=== PATIENT | female | born 1975 | race Caucasian/White ===

== ENCOUNTER 2017-11-28 17:49 | Inpatient (IN) | payer OTHER ==
[~2017-11-28] VITALS: Ht 162.6 cm; Wt 97.1 kg
--- NOTE | 2017-11-28 18:11 | ED PSYCHIATRIC COMPLAINT ---
See Addendum History of Present Illness General Chief Complaint: ETOH/Drug Related Complaint Stated Complaint: ETOH DETOX, PANIC ATTACK Source: patient, old records, EMS Exam Limitations: no limitations Vital Signs & Intake/Output Vital Signs & Intake/Output Vital Signs Date Time Temp Pulse Resp B/P B/P Pulse O2 O2 Flow FiO2 Mean Ox Delivery Rate 11/29 0050 98.7 125 20 154/96 96 Room Air 11/29 0046 98.7 123 18 154/96 11/28 2329 Room Air 11/28 2218 97.5 112 16 135/73 11/28 2218 97.5 112 16 135/73 96 Room Air 11/28 2107 99.3 11/28 2017 99.3 128 18 141/75 11/28 2017 99.3 128 18 141/75 95 Room Air 11/28 1920 Room Air 11/28 1900 99.0 120 18 150/67 11/28 1900 99.0 120 18 150/67 95 Room Air 11/28 1751 138 20 148/101 97 Room Air Room Air ED Intake and Output 11/29 0000 11/28 1200 Intake Total 0 Output Total 0 Balance 0 Intake, Oral 0 Output, Urine 0 Patient 215 lb Weight Allergies Coded Allergies: No Known Allergies (11/28/17) Triage Note: 42 YEAR OLD FEMALE BIBA FROM HOME REQUESTING ETOH DETOX. PT REPORTS SHE DRINKS 1 LITER OF VODKA DAILY. LAST DRINK WAS OVER 24 HOURS AGO TODAY SHE ONLY DRANK A FEW SIPS. PT REPORTS DETOX AT [facility] 1 MONTH AGO. PT ARRIVES TO ED ALERT AND ORIENTED X3, CLEAR SPEECH, STEADY GAIT. PT REPORTS FEELING SHAKEY, NAUSEOUS AND ANXIOUS. HR IN THE 130'S, EKG ORDERED AND COMPLETED. DR. STEVENSON AT BEDSIDE FOR EVAL. SECURITY TO BEDSIDE FOR WANDING. PT COOPERATIVE WITH CHANGING AND SURRENDURING OF VALUABLES. Triage Nurses Notes Reviewed? yes Onset: Afternoon Duration: hour(s):, constant, continues in ED, getting worse Timing: recent history Severity: severe Associated Symptoms: anxiety LMP (ages 10-50): unknown : No Patient currently breastfeeds: No HPI: Patient admits to drinking 1 L of vodka daily with her last drink yesterday. She complains of generalized tremors anxiety palpitations diaphoresis nausea vomiting. Her last detox was 1 month ago and [place]. She denies fever chills chest pain cough shortness of breath headache dysuria rash bleeding. (Buddy Stevenson MD) Reconcile Medications Folic Acid 1 MG TABLET 1 TAB PO DAILY SUPPLEMENT (Reported) Pantoprazole Sodium 40 MG TABLET.DR 1 TAB PO DAILY GERD (Reported) (Krupa HAIR,Baljit Eric) Past History Travel History Traveled to [place] past 21 day No Medical History Any Pertinent Medical History? see below for history Cardiovascular: hypertension Psychiatric: alcohol dependence, anxiety, depression Endocrine: hypothyroidism Surgical History Surgical History: non-contributory Psychosocial History What is your primary language Portuguese Tobacco Use: Never used ETOH Use: alcoholic Family History Hx Contributory? No (Buddy Stevenson MD) Review of Systems Review of Systems Constitutional: Reports: see HPI, diaphoresis, weakness. EENTM: Reports: no symptoms. Respiratory: Reports: no symptoms. Cardiovascular: Reports: no symptoms. GI: Reports: see HPI, nausea, vomiting. Genitourinary: Reports: no symptoms. Musculoskeletal: Reports: no symptoms. Skin: Reports: no symptoms. Neurological/Psychological: Reports: see HPI, anxiety, cognitive dysfunction, confusion. Hematologic/Endocrine: Reports: no symptoms. Immunologic/Allergic: Reports: no symptoms. All Other Systems: Reviewed and Negative (Buddy Stevenson MD) Physical Exam Physical Exam General Appearance: well developed/nourished, alert, awake, anxious, severe distress, obese Head: atraumatic, normal appearance Eyes: Bilateral: normal appearance, PERRL, EOMI. Ears, Nose, Throat: normal pharynx, normal ENT inspection, hearing grossly normal Neck: normal inspection, supple, full range of motion, no midline tenderness Respiratory: normal breath sounds, chest non-tender, no respiratory distress, quiet respiration, lungs clear Cardiovascular: regular rate/rhythm, normal peripheral pulses, tachycardia, norml femoral pulses equa Gastrointestinal: normal bowel sounds, soft, non-tender, no organomegaly Extremities: normal range of motion, no ligament instability Neurological/Psychiatric: no motor/sensory deficits, awake, agitated, alert, anxious, wilderness guide II-XII nml as tested, oriented x 3 Appearance/Memory/Insight: disheveled, impaired insight Behavoir/Eye Contact/Speech: cooperative, increased rate of speech Thoughts/Hallucinations: no apparent hallucination Skin: intact, normal color, warm/dry SAD PERSONS Done? patient not suicidal (Blanca HAIR,Buddy) Progress Differential Diagnosis: drug intoxication, drug overdose, drug withdrawal, electrolyte abnormality, hypoglycemia Plan of Care: Orders Procedure Date/time Status Regular Diet 11/29 B Active PHOSPHORUS 11/29 06 Active MAGNESIUM 11/29 06 Active HEPATIC FUNCTION PANEL 11/29 06 Active CBC WITHOUT DIFFERENTIAL 11/29 06 Active BASIC ELECTROLYTES PLUS BUN&CR 11/29 06 Active PT Evaluate & Treat 11/29 0104 Active Pathway - chart 11/29 0104 Active House Staff 11/29 0104 Active SOCIAL WORK CONSULT 11/29 0104 Active Weight 11/29 0012 Active Teach/Educate 11/29 0012 Active Pain Treatment and Response 11/29 0012 Active Nutritional Intake, Monitor 11/29 0012 Active Isolation 11/29 0012 Active Patient Care Conference 11/29 0012 Active Activity/Ambulation 11/29 0012 Active Lab Add-on Test 11/29 UNK Active VTE Mechanical Prophylaxis 11/29 UNK Active PSYCHIATRIC CONSULT 11/29 UNK Active Patient Data 11/28 2101 Active Saline Lock 11/28 2100 Active Misc Message 11/28 2100 Active ED Holding Orders 11/28 2100 Active Admit to inpatient 11/28 2100 Active Vital Signs 11/28 2100 Active Code Status 11/28 2100 Active Intake & Output 11/28 1909 Active CIWA 11/28 1836 Active PHOSPHORUS 11/28 1816 Complete VITAMIN B12 11/28 1816 Complete URINE DRUG SCREEN FOR ER ONLY 11/28 1804 Active MAGNESIUM 11/28 1804 Complete LIPASE 11/28 1804 Complete ETHANOL 11/28 1804 Complete COMPREHENSIVE METABOLIC PANEL 11/28 1804 Complete CBC WITHOUT DIFFERENTIAL 11/28 1804 Complete EKG 11/28 1751 Active Current Medications Sig/Shantell Start time Last Medication Dose Stop Time Status Admin Enoxaparin Sodium 40 MG DAILY 11/29 899 AC (Lovenox) Folic Acid 1 MG DAILY 11/29 899 AC (Folic Acid) Multivitamins 1 TAB DAILY 11/29 899 AC (Theragran Vitamins) Thiamine HCl 100 MG DAILY 11/29 899 AC (Vitamin B1) Omeprazole 40 MG DAILY AC 11/29 07 AC (Prilosec) Ibuprofen 400 MG Q6P PRN 11/29 0130 AC 11/29 (Motrin) 0150 Lorazepam 0 Q1P PRN 11/29 0115 AC 11/29 (Ativan) 0259 Magnesium Sulfate 1 GM Q2H 11/29 0115 11/29 (Mag Sulfate in D5) 11/29 0514 0327 Dextrose/Water 100 ML (D5W) Lorazepam 2 MG Q6 11/29 0102 11/29 (Ativan) 0144 Ondansetron HCl 4 MG Q8P PRN 11/29 0045 11/29 (Zofran) 0115 Laboratory Tests 11/28/17 1816: Anion Gap 18 H, Estimated GFR > 60, BUN/Creatinine Ratio 4.3 L, Glucose 106 H , Calcium 8.5, Phosphorus 2.8, Magnesium 1.3 L, Total Bilirubin 1.0, AST 228 H , ALT 107 H, Alkaline Phosphatase 253 H, Total Protein 6.8, Albumin 3.6, Globulin 3.2, Albumin/Globulin Ratio 1.1, Lipase 170, Vitamin B12 495, CBC w Diff NO MAN DIFF REQ, RBC 3.26 L, MCV 106.7 H, MCH 36.6 H, MCHC 34.3, RDW 18.8 H, MPV 6.9 L, Gran % 71.7, Lymphocytes % 19.0 L, Monocytes % 8.7, Eosinophils % 0, Basophils % 0.6, Absolute Granulocytes 3.4, Absolute Lymphocytes 0.9 L, Absolute Monocytes 0.4, Absolute Eosinophils 0, Absolute Basophils 0, Serum Alcohol 171.0 Hand-Off Endorsed To: Baljit Gentile MD Endorsed Time: 1899 Pending: labs, other (CIWA) (Buddy Stevenson MD) Departure Departure Disposition: STILL A PATIENT Condition: Stable Clinical Impression Primary Impression: Alcohol dependence with withdrawal delirium Referrals: Isra Moore MD Departure Forms: Customer Survey General Discharge Information (Buddy Stevenson MD) Departure Comments pt admitted prior to my involvement with the patient. Admission Note Spoke With: Marquez Coffman MD Documentation of Exam: Documentation of any treatments & extenuating circumstances including Concerns Regarding Discharge (functional status, medication knowledge or non-compliance, living conditions, etc.) that warrant an admission rather than observation: Pt with alcohol withdrawal syndrome, ciwa 16, meets criteria for admission for iv benzos, supportive care. discussed with case management. (Baljit Gentile MD)
[2017-11-28 18:27] LABS: ABSOLUTE BASOPHIL COUNT 0 /CUMM (0.0-0.2); ABSOLUTE EOSINOPHIL COUNT 0 /CUMM (0.0-0.7); ABSOLUTE GRANULOCYTE CT 3.4 /CUMM (1.4-6.5); ABSOLUTE LYMPH COUNT 0.9 /CUMM (1.2-3.4); ABSOLUTE MONOCYTE COUNT 0.4 /CUMM (0.10-0.60); BASOPHIL % 0.6 % (0.0-2.0); EOSINOPHIL % 0 % (0-5); GRANULOCYTE % 71.7 % (42.2-75.2); HEMATOCRIT 34.8 % (37-47); MEAN CORPUSCULAR HGB 36.6 PG (27.0-31.0); MEAN CORPUSCULAR HGB CONC 34.3 G/DL (33.0-37.0); MEAN CORPUSCULAR VOLUME 106.7 FL (81.0-99.0); MEAN PLATELET VOLUME 6.9 FL (7.4-10.4); PLATELET COUNT 125 /CUMM (130-400); RBC DISTRIBUTION WIDTH 18.8 % (11.5-14.5); RED BLOOD CELL CT 3.26 /CUMM (4.20-5.40); WHITE BLOOD CELL COUNT 4.7 /CUMM (4.8-10.8)
[2017-11-28 19:00] VITALS: BP 150/67
[2017-11-28 20:18] VITALS: BP 141/75
--- NOTE | 2017-11-28 21:51 | History & Physical ---
[place] 11/28/17 2143: General Information and HPI MD Statement: I have seen and personally examined FAWN OLIVERA and documented this H&P. The patient is a 42 year old F who presented with a patient stated chief complaint of nausea, vomiting and palpitation with tremors.[]. Source of Information: patient, old records Exam Limitations: no limitations History of Present Illness: 42 YO F with PMH of HTN, hypothyroidism, anxiety, depression, heroine use and alcohol abuse was brought to ED requesting for alcohol detox. Patient reported that she was admitted for alcohol detox in [facility] one months back. She reported that she remained sober for 2 weeks and then she again started to drink. According to patient she is drinking 1 L of vodka everyday and her last drink was 24 hours back. Patient then decided to quit drinking and developed withdrawal symptoms. Patient reported that she is feeling nauseous and anxious. She also reported having shakiness in her body and palpitations. She also reported that she had 3-4 episodes of vomiting. Her vomitus was yellowish watery content, nonbloody and [id number]. She denied chest pain, loss of consciousness, seizures, sick contact, abdominal pain, diarrhea, constipation, numbness, tingling, weakness, cough, sputum, chills, fever, rash, or illicit drug use , suicidal ideation and dysuria. According to the patient she never smoked but she was using heroin 1 year back. She was using methadone and following the methadone clinic in [place]. Then the clinic kicked her out because she was continuously drinking. Patient reported that she fell down 2 weeks back and she hurt her right ankle. She went to her foot doctor that gave her brace but she didn't use it. Patient was diagnosed with hypertension but she never used any medication. She was diagnosed in the past with anxiety and depression but she never used any medication. ED course: Vitals: Temperature 99.0, pulse 138, respiratory rate 20, blood pressure 148/101 , oxygen saturation 97% on room air Labs: WBC count 4.7, hemoglobin 11.9, hematocrit 34.8, platelet count 125, sodium 139, potassium 3.1, BUN 3, creatinine 0.7, anion gap 18, BUNs/creatinine ratio 4.3, glucose 106, calcium 8.5, magnesium 1.3, total bilirubin 1.0, AST 228 , ALT 107, alkaline phosphatase 253, albumin 3.6, total protein 6.8, lipase 170 Patient received multiple doses of Ativan in ED. Allergies/Medications Allergies: Coded Allergies: No Known Allergies (11/28/17) Home Med list Folic Acid 1 MG TABLET 1 TAB PO DAILY SUPPLEMENT (Reported) Pantoprazole Sodium 40 MG TABLET.DR 1 TAB PO DAILY GERD (Reported) Past History Travel History Traveled to [place] past 21 day No Medical History Cardiovascular: hypertension Psychiatric: alcohol dependence, anxiety, depression Endocrine: hypothyroidism Surgical History Surgical History: non-contributory Past Family/Social History Psychosocial History ETOH Use: alcoholic Review of Systems Review of Systems Constitutional: Reports: weakness. Denies: chills, diaphoresis. EENTM: Reports: no symptoms. Cardiovascular: Reports: palpitations. Denies: chest pain, orthopena, syncope. Respiratory: Denies: cough, orthopnea, short of breath, sputum production, wheezing. GI: Reports: nausea, vomiting. Denies: abdominal pain, constipation, diarrhea, melena. Genitourinary: Denies: discharge, frequency, hematuria, nocturia, pain. Musculoskeletal: Reports: see HPI. Skin: Reports: see HPI. Neurological/Psychological: Reports: anxiety, tremors. Denies: confusion, headache, numbness, tingling. Hematologic/Endocrine: Reports: no symptoms. Exam & Diagnostic Data Last 24 Hrs of Vital Signs/I&O Vital Signs Date Time Temp Pulse Resp B/P B/P Pulse O2 O2 Flow FiO2 Mean Ox Delivery Rate 11/28 2106 99.3 11/28 2017 99.3 128 18 141/75 11/28 2017 99.3 128 18 141/75 95 Room Air 11/28 1920 Room Air 11/28 190 99.0 120 18 150/67 11/28 1900 99.0 120 18 150/67 95 Room Air 11/28 1751 138 20 148/101 97 Room Air Room Air Physical Exam General Appearance Alert, Oriented X3, Cooperative Skin No Rashes Skin Temp/Moisture Exam: Warm/Dry Sepsis Skin Exam (color): Normal for Ethnicity HEENT Atraumatic, PERRLA, EOMI Neck Supple Cardiovascular Normal S1, Normal S2 Lungs Clear to Auscultation Abdomen Soft, lower abdominal mild tenderness Neurological Normal Speech, Strength at 5/5 X4 Ext, Normal Tone, Sensation Intact Extremities No Edema, right ankle swelling but no tenderness, roight ankle ROM normal Assessment/Plan Assessment: 42 YO F with PMH of HTN, hypothyroidism, anxiety, depression, heroine use and alcohol abuse was brought to ED requesting for alcohol detox. We will admit the patient on telemetry floor considering patient's sinus tachycardia: Sinus tachycardia: -Possibly due to alcohol withdrawal and anxiety. -We will monitor the patient on telemetry floor for any pauses or worsening of tachycardia -We will treat patient with Ativan for alcohol withdrawal possibly it will help her to control her tachycardia. Alcohol withdrawal: -We will keep the patient on CIWA protocol -Ativan 2 mg every 6 hourly. We will taper the dose according to her CIWA score. -Vitamin B12 and folic acid supplementation -IV Zofran as needed for nausea -Tylenol as needed for pain -Po omeprazole Hypokalemia: -Possibly due to alcohol use -Patient has mild hypokalemia we will replete her potassium and follow her potassium level Hypomagnesemia: -Possibly due to alcohol use -Magnesium supplementation and we will monitor her magnesium level Transaminitis: -Possibly due to alcohol use -We will check her LFTs. If it's remained elevated we will do ultrasound right upper quadrant. Right ankle swelling: -Pain management -X-ray of right ankle -Ice massage to decrease the swelling. Thrombocytopenia: -Possibly due to alcohol use -We will monitor her platelet count and a wide any medication that can decrease her platelet count or fuction. History of anxiety and depression: -Patient is not taking any medication. She denied any suicidal ideation. -We will get psychiatric consult DVT prophylaxis: Mechanical and s/c lovenox Code status: Full code. As Ranked By This Provider Problem List: 1. Alcohol dependence with withdrawal delirium 2. Transaminitis 3. Hypokalemia 4. Hypomagnesemia 5. Sinus tachycardia Core Measures/Misc (02/21) Acute Coronary Syndrome ACS Diagnosis: No Congestive Heart Failure Congestive Heart Failure Diagnosis No Cerebrovascular Accident CVA/TIA Diagnosis: No VTE (View Protocol) VTE Risk Factors Age>40 No Mechanical VTE Prophylaxis d/t N/A MechProphylax Ordered No VTE Pharm Prophylaxis d/t NA PharmProphylax ordered Sepsis (View protocol) Sepsis Present: No If YES complete Sepsis Event Note If YES complete Sepsis Event Note Rach HAIRGeovani Stokes/24/18 2336: Core Measures/Misc (02/21) Sepsis (View protocol) If YES complete Sepsis Event Note If YES complete Sepsis Event Note Resident Review Statement Resident Statement: examined this patient, discussed with director internal communications, agreed with director internal communications, reviewed EMR data (avail) Other Findings: History of Present Illness 42 year old with with past medical history of EtOH abuse/withdrawal/dependence, hypertension, anxiety, depression, hypothyroidism, and heroin abuse previously on methadone seen in the ED requesting alcohol detox. New para Patient was recently admitted to [facility] intensive care unit approximately one month ago for alcohol detox and reportedly remained sober for two weeks. Currently patient reports drinking a "big bottle" of Vodka per day for the past couple weeks; last drink was yesterday. She denies having ever been intubated or suffered from seizures related to alcohol. She has never attended an outpatient program. Additionally she is complaining of worsening depression with poor sleep and appetite recently due to her alcoholism. She denies any SI/HI. She admits to associated nausea with vomiting of multiple episodes of nonbloody, bilious material, worsening tremor, anxiety, and palpitations. Review of Systems Additionally she denies any headache, fever, chills, blurred/double vision, lightheadedness/dizziness, chest pain, heartburn, shortness of breath, cough, constipation, urinary complaints. Social History Denies having ever used tobacco. Admits to snorting heroin in the past and using methadone after about being "kicked out" of the program for drinking. Objective Vital - Temp 99.0-99.3, HR 120-138, RR 18-20, SBP 141-150, O2 95-97% on room air Physical Exam -General: Anxious appearing middle-aged woman in no acute distress -HEENT: NCAT, PERRLA, EOMI, anicteric sclera -Neck: Supple, no JVD, trachea midline -Cardio: Normal S1/S2 without murmurs/gallops/rubs; tachycardic -Pulm: Clear to auscultation bilaterally -Abdomen: Soft, nontender, nondistended, bowel sounds intact -Neuro: Awake and alert, cranial nerves II through XII grossly intact -Extremities: Normal pulses, moderate tenderness to right ankle without deformity, no edema Labs / Imaging / Studies -CBC: WBC 4.7, hemoglobin 11.9, hematocrit 34.8, platelet 125 -BMP: Sodium 139, potassium 3.1, chloride 98, CO2 23, BUN 3, creatinine 0.7, anion gap 18, glucose 106 -LFT: AST 228, ALT 107, ALP 253 -Misc: Magnesium 1.3, lipase 170, EtOH 170 -EKG: Sinus tachycardia, HR 140s; large amounts of artifact Assessment 42-year-old woman with multiple medical problems significant for EtOH abuse/ withdrawal/dependence, anxiety, and depression seen in the ED requesting alcohol detox. Presently patient is complaining of occasional nausea with nonbloody nonbilious vomiting, anxiety, and feeling "shaky". Vital signs are significant for a heart rate of 120-138, and SBP of 141-150. Physical exam is significant for an anxious appearing middle-aged woman with a normal cardiopulmonary abdominal examination but with moderate tenderness without deformity to the right ankle. Labs are significant for K3.1, MG 1.3, AST 228, ALT 107, ALP 253, EtOH 171, MCV 106. EKG demonstrated sinus tachycardia with large amount of artifact, heart rate 140s. CIWA scores were 9 and 16. Patient received intravenous acetaminophen and Toradol in addition to a banana bag and liter of normal saline ; additionally she received Zofran and 2 doses of oral Ativan in the ED. Patient is being admitted to the telemetry floor for alcohol detox and repletion of her multiple electrolyte abnormalities. Patient's hypomagnesemia/hypokalemia /macrocytic anemia/transaminitis/thrombocytopenia are all likely due to her alcoholism. Patient is started on a scheduled dose of oral Ativan with additional doses as needed per CIWA in addition to vitamin supplements and will be seen by psychiatry and social work. Patient sinus tachycardia may be possibly due to alcohol and/or polysubstance withdrawal which will be monitored on telemetry. 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 Plan -Admit to telemetry -Telemetry monitoring -CIWA -Ativan 2 mg PO Q6H -Ativan PRN per CIWA -Thiamine / Folate / Multivitamin -Zofran PRN for Nausea -Consult with social work for outpatient alcohol rehab programs -Consult with psychiatry for depression and polysubstance abuse -PT evaluation -Check Phosphorous, B12, UTox -Pain control PRN -Regular Diet -DVT PPx with lovenox -FULL CODE Marquez Coffman 11/29/17 0253: Core Measures/Misc (02/21) Sepsis (View protocol) If YES complete Sepsis Event Note If YES complete Sepsis Event Note Attending MD Review Statement Attending Statement Attending MD Statement: examined this patient, discuss w/resident/PA/MEDICAL EDUCATION COORDINATOR, agreed w/resident/PA/MEDICAL EDUCATION COORDINATOR, reviewed EMR data (avail), reviewed images, amended to note Attending Assessment/Plan: CC: Alcohol detox PMH: Anxiety, depression, hypothyroidism, HTN, poorly abuse, history of heroine abuse, was on methadone currently she is not on methadone. According to patient she has been dealing with problem of alcohol since last 7-8 months, tried detox 4 times a so far, last one was one month back at [facility], was admitted in ICU for 1 day at that time with Ativan drip. She was discharged and was sober for 2 weeks and then relapsed again 2 weeks back. She drinks a liter of vodka every day last drink today. She wanted to detox so she came to ER, feels very anxious and depressed but denies any suicidal or homicidal ideation. She has been feeling nauseous and having vomiting and dry heaving since morning and feels tremulous otherwise complete ROS unremarkable. She never had alcohol withdrawal seizures. Vitals: Temperature 99.0, pulse 138, RR 20, blood pressure 150/67, saturating 97 % on room air. On exam: A O 3, cooperative, no acute distress, mild tremors, neck supple, JVD normal, no lymphadenopathy, mucosa moist, no focal neurological deficit, no dependent edema, no obvious skin rashes or inflammation CVS: S1-S2, RRR. RS: Clear to auscultate bilaterally. Abdomen: Soft, NT, ND, bowel sounds present. Right Ankle x-ray: - Moderate soft tissue swelling about the lateral malleolus. - No fracture. - Tibiotalar joint effusion. Assessment and plan 42-year-old female with past medical history mentioned above presented in ER for alcohol detox. She is tremulous, had CIWA score of 16 in ER, persistently tachycardic. She benefits in telemetry admission for persistent tachycardia, has mild anion gap acidosis with transaminitis and elevated MCV all secondary to alcohol and starvation. Never had alcohol withdrawal seizures but was admitted in ICU and was on Ativan drip for the past. She also complains of right ankle pain and x-ray shows mild swelling of soft tissue, on exam no evidence of infection, will manage consultatively. + Alcohol withdrawal + History of Anxiety, depression, hypothyroidism, HTN, poorly abuse, history of heroine abuse, was on methadone currently she is not on methadone. - Admit to telemetry - Continuous telemetry monitoring - Continue scheduled Ativan PO 2 milligram every 6 hours - Continue when necessary Ativan according to CIWA protocol - High-dose thiamine - PO folic acid and B12 - Check magnesium and phosphorus, today and tomorrow, replace if low - Psych consult - OT PT evaluation - Replete electrolytes - photographic process worker consult - DVT prophylaxis - Adequate pain control
--- NOTE | 2017-11-28 21:59 | RADIOLOGY REPORT ---
EXAMINATION: XR ANKLE, RIGHT CLINICAL INFORMATION: Fracture. Fall 2 weeks ago. Continued right lateral malleoli are pain and swelling. COMPARISON: None TECHNIQUE: AP, lateral, and mortise views of the right ankle. FINDINGS: There is moderate soft tissue swelling about the lateral malleolus. No fracture is seen. The ankle mortise is maintained. A tibiotalar joint effusion is noted. The distal tibia and fibula appear normal. IMPRESSION: - Moderate soft tissue swelling about the lateral malleolus. - No fracture. - Tibiotalar joint effusion.
[2017-11-28 22:18] VITALS: BP 135/73
[2017-11-28] MEDS ORDERED: PANTOPRAZOLE SO40 M1 PO (23:44)
[2017-11-28] MEDS ORDERED: FOLIC ACID1 M1 PO (23:45)
[2017-11-29] VITALS (8 sets, daily range): BP systolic 124–154; BP diastolic 80–96
--- NOTE | 2017-11-29 02:55 | Admission Certification ---
Admission Certification Certification Statement - As attending physician, I certify that at the time of - admission, based on clinical presentation, severity of - symptoms, need for further diagnostic testing and - therapeutic interventions, and risk of adverse outcomes - without in-hospital treatment, in my clinical assessment, - this patient requires an acute hospital stay for a minimum - of two nights or longer. I have also considered psychsocial - factors such as support system, advanced age, financial - issues, cognitive issues, and failed out-patient treatments, - past re-admission history, safety of patient, and lack of - compliance as applicable. Specific rationale supporting this admission is: Alcohol withdrawal
--- NOTE | 2017-11-29 07:29 | PN- Housestaff ---
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 Objective Last 24 Hrs of Vital Signs/I&O Vital Signs Date Time Temp Pulse Resp B/P B/P Pulse O2 O2 Flow FiO2 Mean Ox Delivery Rate 11/29 1202 98.4 108 18 126/80 96 Room Air 11/29 0757 98.5 105 20 146/90 97 Room Air 11/29 0410 99.2 114 20 150/82 95 Room Air 11/29 0400 99.2 114 20 150/82 11/29 0050 98.7 125 20 154/96 96 Room Air 11/29 0046 98.7 123 18 154/96 11/28 2329 Room Air 11/28 2218 97.5 112 16 135/73 11/28 2218 97.5 112 16 135/73 96 Room Air 11/28 2107 99.3 11/28 2017 99.3 128 18 141/75 11/28 2017 99.3 128 18 141/75 95 Room Air 11/28 1920 Room Air 11/28 1900 99.0 120 18 150/67 11/28 1900 99.0 120 18 150/67 95 Room Air 11/28 1751 138 20 148/101 97 Room Air Room Air Intake & Output 11/29 1600 11/29 0800 11/29 0000 Intake Total 825 0 Output Total 800 0 Balance -800 825 0 Intake, IV 825 Intake, Oral 0 Number 1 Bowel Movements Output, Urine 800 0 Patient 208 lb 215 lb Weight Weight Bed scale Measurement Method Physical Exam General Appearance: Alert, Oriented X3, Cooperative HEENT: Atraumatic, PERRLA, EOMI, Mucous Membr. moist/pink Cardiovascular: Normal S1, Normal S2 Lungs: Clear to Auscultation Abdomen: Normal Bowel Sounds, Soft, No Tenderness Extremities: No Clubbing, No Cyanosis, No Edema Assessment/Plan Assessment: 42 YO F with PMH of HTN, hypothyroidism, anxiety, depression, heroine use and alcohol abuse was brought to ED requesting for alcohol detox. We will admit the patient on telemetry floor considering patient's sinus tachycardia: Sinus tachycardia: -Possibly due to alcohol withdrawal and anxiety. -We will monitor the patient on telemetry floor for any pauses or worsening of tachycardia -We will treat patient with Ativan for alcohol withdrawal possibly it will help her to control her tachycardia. Alcohol withdrawal: -We will keep the patient on CIWA protocol We will add sertraline 50 mg daily -Ativan 2 mg every 6 hourly. We will taper the dose according to her CIWA score. -Vitamin B12 and folic acid supplementation -IV Zofran as needed for nausea -Tylenol as needed for pain -Po omeprazole Hypokalemia: -Possibly due to alcohol use -Patient has mild hypokalemia we will replete her potassium and follow her potassium level Hypomagnesemia: -Possibly due to alcohol use -Magnesium supplementation and we will monitor her magnesium level Transaminitis: Liver enzymes trending down -Possibly due to alcohol use Right ankle swelling: -Pain management -X-ray of right ankle showed: Moderate soft tissue swelling about the lateral malleolus. - No fracture.Tibiotalar joint effusion. -Ice massage to decrease the swelling. Thrombocytopenia: We will monitor CBCs -Possibly due to alcohol use -We will monitor her platelet count and a wide any medication that can decrease her platelet count or fuction. History of anxiety and depression: Was a started on sertraline 50 mg p.o. daily -Patient is not taking any medication. She denied any suicidal ideation. -Psychiatry recommendation appreciated DVT prophylaxis: Mechanical only Code status: Full code. Problem List: 1. Sinus tachycardia 2. Alcohol dependence with withdrawal delirium Pain Ratin Pain Location: N/A Pain Goal: Remain pain free Pain Plan: [facility] Labs & Rationales: cbc aleciap LamarJazmyne 11/29/17 1146: Attending MD Review Statement Attending Statement Attending MD Statement: examined this patient, discuss w/resident/PA/WOOD HEEL CEMENTER, agreed w/resident/PA/WOOD HEEL CEMENTER, discussed with family, reviewed EMR data (avail), discussed with nursing, discussed with case mgmt, reviewed images, amended to note Attending Assessment/Plan: Patient is here for alcohol withdrawal. She is tachycardic. tremulous. Her BP is on slighty elvated. Contineu ativan as per protocol. CIWA score and titrate meds. folic acid thiamine, replete lytes. check magnesium pyshc appreciated and needs IOP referral at discharge.
[2017-11-29 08:04] LABS: ABSOLUTE BASOPHIL COUNT 0 /CUMM (0.0-0.2); ABSOLUTE EOSINOPHIL COUNT 0 /CUMM (0.0-0.7); ABSOLUTE GRANULOCYTE CT 3.6 /CUMM (1.4-6.5); ABSOLUTE MONOCYTE COUNT 0.3 /CUMM (0.10-0.60); WHITE BLOOD CELL COUNT 5.1 /CUMM (4.8-10.8)
[2017-11-29 08:21] LABS: ABSOLUTE LYMPH COUNT 1.1 /CUMM (1.2-3.4); BASOPHIL % 0.5 % (0.0-2.0); EOSINOPHIL % 0.8 % (0-5); GRANULOCYTE % 71.9 % (42.2-75.2); HEMATOCRIT 30.7 % (37-47); MEAN CORPUSCULAR HGB 36.5 PG (27.0-31.0); MEAN CORPUSCULAR HGB CONC 34.2 G/DL (33.0-37.0); MEAN CORPUSCULAR VOLUME 106.6 FL (81.0-99.0); MEAN PLATELET VOLUME 7.4 FL (7.4-10.4); RBC DISTRIBUTION WIDTH 18.8 % (11.5-14.5); RED BLOOD CELL CT 2.88 /CUMM (4.20-5.40)
[2017-11-29 08:32] LABS: PLATELET COUNT 83 /CUMM (130-400)
--- NOTE | 2017-11-29 09:11 | Cons- Psychiatry ---
Psychiatric Consult Date of Consult: 11/29/17 Reason for Consult: This 42-year-old female presented to the emergency room with a blood alcohol of 171 complaining of nausea and palpitations and requesting detox. History of Present Illness: The patient is a somewhat inconsistent historian. She reports that she has been drinking over a liter of vodka a day for at least the past 7 months. She reports withdrawal symptoms including nausea, retching and diarrhea. She denies blackouts. She has no history of seizures or delirium tremens. She has no legal consequences to her drinking. Her alcohol use is affecting her marriage and she believes her wants a divorce. Her 20- year-old daughter left home a few months ago also as a consequence of the patient's drinking. According to her admission notes the patient was admitted to [facility] for detox last month and maintained sobriety for 2 weeks. The patient states she drank socially since her late teens but denies that alcohol was a problem until 7 months ago. This is not consistent with reported elsewhere. The patient was prescribed opiates for back pain when she was 36. She abuse her medication and progressed using heroin. She said she used heroin nasally for a few weeks only. She was then treated in [facility] where she was on a methadone detox again for a few weeks. She says she completed this treatment at the end of last year. She denies any other substance use. The patient describes her mood as "blocked" for the past 5 months. Sleep is interrupted as she wakes at night to drink. She has no appetite, concentration and energy are poor. She reports anhedonia. There is no diurnal variation in mood. She is not suicidal homicidal. There are no psychotic symptoms. Psychosocial stressors: The patient reports that her father has just been diagnosed with cancer of the throat and lung, her uncle has been diagnosed with brain cancer. Her 20-year-old daughter moved out of their home a few months ago and went to live with her father. Her daughter has not spoken to her since. The patient denies any precipitants to her daughter moving out but believes it is because of her drinking. Past psychiatric history: The patient was prescribed bupropion, sertraline and clonazepam by her primary care doctor in the past. She took this medication for 6 months. She has no history of suicide attempts or deliberate self-harm. She has no history of psychiatric admission. Past medical history: Hypertension, hypothyroidism Personal history: The patient was raised by both of her parents who are still alive. Father was there. She states that her mother has stopped having contact with her because of her substance abuse. She is an only child. She denies any childhood trauma. 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 She last worked 4 years ago and she has no income. Her works. This is her third marriage. She at the age of 22 and this lasted for 4 years. She had one child by this marriage and she and her parents raised her. She says that she and her daughter were "best friends" until her daughter moved out recently. She has 2 other children age 15 and 8. She again at the age of 24 and again it lasted 3-4 years. She has been with her current for 10 years. She says that he has told her he wants a divorce. She believes her drinking is contributing to this. The patient has no confidants. She has not connected with AA or NA. Allergies: Coded Allergies: No Known Allergies (11/28/17) Current Medications: Lorazepam per detox protocol Clonidine 0.1 mg p.o. 3 times daily as needed hypertension Potassium chloride 40 mEq p.o. twice daily Omeprazole 40 mg p.o. daily Thiamine 100 mg p.o. daily Folic acid 1 mg p.o. daily Past History Past Medical History Cardiovascular: hypertension Hepatic: alcoholic hepatitis Psychiatric: alcohol dependence, anxiety, depression Endocrine: hypothyroidism Past Surgical History Surgical History: non-contributory Psychiatric Treatment History Psych Treatment Psychiatric Treatment No Diagnosis: 1. Alcohol use disorder severe dependence 2. Opiate use disorder in early remission 3. Major depressive disorder recurrent moderate, rule out substance-induced mood disorder 4. Hypokalemia 5. Hypertension 6. Hypothyroidism Risk Factors: substance abuse, limited support Substance Use/Abuse History Drug Use/Abuse Substances Used/Abused Yes Substance Used/Abused Non-Prescribed Opiates First Use approx six years ago Last Used prior to admission How much used/taken see above How often s/a For how long s/a Substance Abuse Treatment Substance Abuse Treatment Past Substance Abuse TX Yes Inpatient Treatment Yes Outpatient Treatment Yes Location of Treatment [place] in detox Reason for Treatment Alcohol detox Dates of Treatment ? October 2017 Assessment/Plan Mental Status Orientation: Person, Place, Situation Affect: Depressed Mental Status Exam: The patient is a 42-year-old female sitting in her hospital bed. She was alert and oriented 3. Gait was not assessed. Eye contact is good. Speech was normal in rate, rhythm, volume and tone. She described her mood as "blah", her affect was restricted to the depressive range. She was not suicidal or homicidal. Thought process was normal in tempo and stream, form was concrete. There were no delusions or obsessions. Concentration was fair. There is no perceptual abnormality. Impulse control is good. Intelligence level is likely average, fund of knowledge average, use of language appropriate. The patient's symptoms and current medication contributed to evident difficulty with timeline of her history. Overall recent and remote memory are intact. The patient's insight is fair. Judgment is unimpaired. Lab Results: Lab Hct 30.7 % L 11/29/17 0605 Hgb 10.5 G/DL L 11/29/17 0605 MCH 36.5 PG H 11/29/17 0605 MCV 106.6 FL H 11/29/17 0605 Plt Count 83 /CUMM L 11/29/17 0605 RBC 2.88 /CUMM L 11/29/17 0605 Lab ALT 93 U/L H 11/29/17 0605 AST 196 U/L H 11/29/17 0605 Albumin 2.7 g/dL L 11/29/17 0605 Alkaline Phosphatase 220 U/L H 11/29/17 0605 Chloride 97 mmol/L L 11/29/17 0605 Direct Bilirubin 1.0 mg/dL H 11/29/17 0605 Potassium 2.4 mmol/L*L 11/29/17 0605 Sodium 135 mmol/L L 11/29/17 0605 Total Bilirubin 2.0 mg/dL H 11/29/17 0605 Total Protein 5.5 g/dL L 11/29/17 0605 Impression: 42-year-old female admitted for detoxification from alcohol. History of oral and intranasal opiate dependence, currently abstinent for approximately 6 months per her report. History of anxiety and depression treated by primary care doctor. Now presenting with depressive symptoms. Reports motivation for sobriety. The patient is not suicidal or homicidal. There are no psychotic symptoms. She declines AA as she does not like group settings but is willing to attend an intensive outpatient program. Provisional Treatment Plan: 1. Continue alcohol detox. Tachycardia ongoing. 2. Replace potassium, potassium this morning 2.4 3. Check TSH 4. Start sertraline 50 mg p.o. daily 5. Not a candidate for naltrexone at this time due to elevated transaminases 6. Refer to IOP. [facility] offers walking hours on Wednesday, Wednesday and Wednesday at [address] [place] [address]. The patient will see a provider on the day of presentation. She has been advised to present there at approximately 7: 45 AM. Thank you for consulting us on this patient. Psychiatry will sign off for now. Please reconsult if we can be of any further assistance.
[2017-11-30 02:00] VITALS: BP 148/82
[2017-11-30 06:39] VITALS: BP 138/86
--- NOTE | 2017-11-30 07:13 | PN- Housestaff ---
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 and 4 milligram IV in the past 24 hours her potassium was low which was repeated this morning, denies any other complaints Review of Systems Constitutional: Reports: see HPI. Objective Last 24 Hrs of Vital Signs/I&O Vital Signs Date Time Temp Pulse Resp B/P B/P Pulse O2 O2 Flow FiO2 Mean Ox Delivery Rate 11/30 1459 97.4 101 18 95 Room Air 11/30 1221 142/96 11/30 1107 114 156/100 11/30 0945 108 152/100 11/30 0639 98.4 91 18 138/86 97 Room Air 11/30 0240 98 11/30 0200 98.3 105 20 148/82 97 Room Air 11/29 2218 98.2 106 18 136/90 97 Room Air 11/29 1621 98.2 108 18 124/90 96 Room Air Intake & Output 11/30 1600 11/30 0800 11/30 0000 Intake Total 1525 800 400 Output Total 100 Balance 1525 800 300 Intake, IV 25 Intake, Oral 1500 800 400 Number 3 Bowel Movements Output, Urine 100 Patient 212 lb Weight Weight Bed scale Measurement Method Physical Exam General Appearance: Alert, Oriented X3, Cooperative, No Acute Distress Neck: Supple, No JVD, No thryomegaly Cardiovascular: Normal S1, Normal S2 Lungs: Clear to Auscultation Abdomen: Normal Bowel Sounds, Soft, No Tenderness Neurological: Normal Speech, Strength at 5/5 X4 Ext, Normal Tone, Sensation Intact, Cranial Nerves 3-12 NL Extremities: No Clubbing, No Cyanosis, No Edema Assessment/Plan Assessment: 42 YO F with PMH of HTN, hypothyroidism, anxiety, depression, heroine use and alcohol abuse was brought to ED requesting for alcohol detox. Sinus tachycardia: -Possibly due to alcohol withdrawal and anxiety. -We will monitor the patient on telemetry floor for any pauses or worsening of tachycardia -We will treat patient with Ativan for alcohol withdrawal possibly it will help her to control her tachycardia. Alcohol withdrawal: -We will keep the patient on CIWA protocol We will add sertraline 50 mg daily -Continue Ativan 2 mg every 6 hourly. We will taper the dose according to her CIWA score. To new IV Ativan PRN according to CIWA -Vitamin B12 and folic acid supplementation -IV Zofran as needed for nausea -Tylenol as needed for pain -Po omeprazole Hypokalemia: -Possibly due to alcohol use -Patient has mild hypokalemia we will replete her potassium and follow her potassium level Hypomagnesemia: -Possibly due to alcohol use -Magnesium supplementation and we will monitor her magnesium level Transaminitis: Liver enzymes trending down -Possibly due to alcohol use Right ankle swelling: -Pain management -X-ray of right ankle showed: Moderate soft tissue swelling about the lateral malleolus. - No fracture.Tibiotalar joint effusion. -Ice massage to decrease the swelling. Thrombocytopenia: Low probability for HIT since is a patient was exposed to heparin and the past 3 months during her admission to [facility], her platelet is less than 1 50,000 however it can be due to alcohol abuse we will monitor CBCs DC Lovenox for now -We will monitor her platelet count and a wide any medication that can decrease her platelet count or fuction. History of anxiety and depression: Was started on sertraline 50 mg p.o. daily -Patient is not taking any medication. She denied any suicidal ideation. -Psychiatry recommendation appreciated DVT prophylaxis: Mechanical only Code status: Full code. Problem List: 1. Alcohol dependence with withdrawal delirium 2. Hypokalemia 3. Transaminitis Pain Ratin Pain Location: N/A Pain Goal: Remain pain free Pain Plan: [facility] Labs & Rationales: CBC BEP MG P Jazmyne Newton 11/30/17 1127: Attending Review Statement Attending Statement Attending MD Statement: examined this patient, discuss w/resident/PA/NUCLEAR PLANT INSTRUMENT TECHNICIAN, agreed w/resident/PA/NUCLEAR PLANT INSTRUMENT TECHNICIAN, discussed with family, reviewed EMR data (avail), discussed with nursing, discussed with case mgmt, reviewed images, amended to note Attending Assessment/Plan: Patient is here for alcohol withdrawal. Tachycardia better. Her BP is on better. Had multiple epsidoes of diarrhea. Continue ativan as per protocol. CIWA score and titrate meds. folic acid thiamine, C/w IVF. Hypokalemia 2/2 diarrhea: replete potassium and recheck, check for c diff. (h/o c diff) Hypomagnesemia replace magnesium pyshc appreciated and needs IOP referral at discharge. Discontinue telemetry and transfer to [facility]
[2017-11-30 07:41] LABS: ABSOLUTE BASOPHIL COUNT 0 /CUMM (0.0-0.2); ABSOLUTE EOSINOPHIL COUNT 0.1 /CUMM (0.0-0.7); ABSOLUTE GRANULOCYTE CT 2.3 /CUMM (1.4-6.5); ABSOLUTE LYMPH COUNT 0.9 /CUMM (1.2-3.4); ABSOLUTE MONOCYTE COUNT 0.2 /CUMM (0.10-0.60); BASOPHIL % 0.6 % (0.0-2.0); EOSINOPHIL % 2.9 % (0-5); GRANULOCYTE % 65.3 % (42.2-75.2); HEMATOCRIT 32.5 % (37-47); MEAN CORPUSCULAR HGB 36.8 PG (27.0-31.0); MEAN CORPUSCULAR HGB CONC 34.2 G/DL (33.0-37.0); MEAN CORPUSCULAR VOLUME 107.7 FL (81.0-99.0); MEAN PLATELET VOLUME 7.9 FL (7.4-10.4); RBC DISTRIBUTION WIDTH 18.8 % (11.5-14.5); RED BLOOD CELL CT 3.02 /CUMM (4.20-5.40); WHITE BLOOD CELL COUNT 3.5 /CUMM (4.8-10.8)
[2017-11-30 08:50] LABS: PLATELET COUNT 85 /CUMM (130-400)
[2017-11-30 09:45] VITALS: BP 152/100
[2017-11-30 11:07] VITALS: BP 156/100
[2017-11-30 12:21] VITALS: BP 142/96
[2017-11-30 22:14] VITALS: BP 118/76
[2017-12-01 06:00] VITALS: BP 134/96
--- NOTE | 2017-12-01 07:13 | PN- Housestaff ---
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 Patient reports feeling much better however she still complains of nausea and nose bowel movements however this morning she only had one bowel movement, still complaining of shakiness and anxiety Review of Systems Constitutional: Reports: see HPI. Objective Last 24 Hrs of Vital Signs/I&O Vital Signs Date Time Temp Pulse Resp B/P B/P Pulse O2 O2 Flow FiO2 Mean Ox Delivery Rate 12/01 0600 97.6 89 18 134/96 98 12/01 0400 91 20 11/30 2214 98.0 112 18 118/76 96 11/30 1459 97.4 101 18 95 Room Air 11/30 1221 142/96 Intake & Output 12/01 1600 12/01 0800 12/01 0000 Intake Total 321.5 500 Output Total Balance 321.5 500 Intake, IV 21.5 Intake, Oral 300 500 Patient 211 lb Weight Physical Exam General Appearance: Alert, Oriented X3, Cooperative, No Acute Distress Cardiovascular: Normal S1, Normal S2, No Murmurs Lungs: Clear to Auscultation Abdomen: Normal Bowel Sounds, Soft, No Tenderness Extremities: No Clubbing, No Cyanosis, No Edema Assessment/Plan Assessment: 42 YO F with PMH of HTN, hypothyroidism, anxiety, depression, heroine use and alcohol abuse was brought to ED requesting for alcohol detox. Sinus tachycardia: -Possibly due to alcohol withdrawal and anxiety. -We will monitor the patient on telemetry floor for any pauses or worsening of tachycardia -We will treat patient with Ativan for alcohol withdrawal possibly it will help her to control her tachycardia. Alcohol withdrawal: -We will keep the patient on CIWA protocol We will add sertraline 50 mg daily -Increase Ativan to 1.5 every 6 we will taper the dose according to her CIWA score. To new IV Ativan PRN according to CIWA -Vitamin B12 and folic acid supplementation -IV Zofran as needed for nausea -Tylenol as needed for pain -Po omeprazole Hypokalemia: -Possibly due to alcohol use -Patient has mild hypokalemia we will replete her potassium and follow her potassium level Hypomagnesemia: -Possibly due to alcohol use -Magnesium supplementation and we will monitor her magnesium level Transaminitis: Liver enzymes trending down -Possibly due to alcohol use Right ankle swelling: -Pain management -X-ray of right ankle showed: Moderate soft tissue swelling about the lateral malleolus. - No fracture.Tibiotalar joint effusion. -Ice massage to decrease the swelling. Thrombocytopenia: Low probability for HIT since is a patient was exposed to heparin and the past 3 months during her admission to [facility], her platelet is less than 1 50,000 however it can be due to alcohol abuse we will monitor CBCs DC Lovenox for now -We will monitor her platelet count and a wide any medication that can decrease her platelet count or fuction. History of anxiety and depression: Was started on sertraline 50 mg p.o. daily -Patient is not taking any medication. She denied any suicidal ideation. -Psychiatry recommendation appreciated DVT prophylaxis: Mechanical only Code status: Full code. Problem List: 1. Alcohol dependence with withdrawal delirium Pain Ratin Pain Location: N/A Pain Goal: Remain pain free Pain Plan: [facility] Labs & Rationales: Jazmyne Nino 12/01/17 1020: Attending MD Review Statement Attending Statement Attending MD Statement: examined this patient, discuss w/resident/PA/DATA CENTER CONSULTANT, agreed w/resident/PA/DATA CENTER CONSULTANT, discussed with family, reviewed EMR data (avail), discussed with nursing, discussed with case mgmt, reviewed images, amended to note Attending Assessment/Plan: Patient seen/examned bedsdie. Her diarrhea improved. C diff is negative. Patient overnight CIWA high requiring iv ativan medications. Vitals stable in am. Continue with electrolytes replacement and ativan taper with prn iv meds. Hypokalemia resolved. gi/dvt prophyalxis pyshc appreciated and needs IOP referral to [facility].
[2017-12-01 08:08] LABS: ABSOLUTE BASOPHIL COUNT 0 /CUMM (0.0-0.2); ABSOLUTE EOSINOPHIL COUNT 0.1 /CUMM (0.0-0.7); ABSOLUTE GRANULOCYTE CT 2.3 /CUMM (1.4-6.5); ABSOLUTE LYMPH COUNT 1.1 /CUMM (1.2-3.4); ABSOLUTE MONOCYTE COUNT 0.2 /CUMM (0.10-0.60); BASOPHIL % 0.6 % (0.0-2.0); EOSINOPHIL % 3.5 % (0-5); HEMATOCRIT 34.3 % (37-47); MEAN CORPUSCULAR HGB 36.9 PG (27.0-31.0); MEAN CORPUSCULAR HGB CONC 33.9 G/DL (33.0-37.0); MEAN CORPUSCULAR VOLUME 108.8 FL (81.0-99.0); MEAN PLATELET VOLUME 8.7 FL (7.4-10.4); PLATELET COUNT 102 /CUMM (130-400); RBC DISTRIBUTION WIDTH 18.9 % (11.5-14.5); RED BLOOD CELL CT 3.16 /CUMM (4.20-5.40); WHITE BLOOD CELL COUNT 3.8 /CUMM (4.8-10.8)
[2017-12-01 12:00] VITALS: BP 138/94
[2017-12-01 14:13] VITALS: BP 138/92
[2017-12-01 22:05] VITALS: BP 126/88
[2017-12-02 06:00] VITALS: BP 160/108
[2017-12-02 07:01] VITALS: BP 160/112
--- NOTE | 2017-12-02 07:20 | PN- Housestaff ---
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 Objective Last 24 Hrs of Vital Signs/I&O Vital Signs Date Time Temp Pulse Resp B/P B/P Pulse O2 O2 Flow FiO2 Mean Ox Delivery Rate 12/02 1241 98.3 96 20 144/96 99 Room Air 12/02 1200 98.3 96 20 144/90 12/02 1200 98.3 96 20 144/96 95 Room Air Room Air 12/02 0755 122 160/110 12/02 0701 97.9 122 20 160/112 98 Room Air 12/02 0600 108 160/108 12/01 2205 98.1 93 20 126/88 98 Room Air 12/01 2200 88.0 Intake & Output 12/02 1600 12/02 0800 12/02 0000 Intake Total 480 680 200 Output Total Balance 480 680 200 Intake, Oral 480 680 200 Patient 214 lb Weight Physical Exam General Appearance: Alert, Oriented X3, Cooperative HEENT: Atraumatic, PERRLA, EOMI, Mucous Membr. moist/pink Cardiovascular: Normal S1, Normal S2, No Murmurs Lungs: Clear to Auscultation Abdomen: Normal Bowel Sounds, Soft, No Tenderness Assessment/Plan Assessment: 42 YO F with PMH of HTN, hypothyroidism, anxiety, depression, heroine use and alcohol abuse was brought to ED requesting for alcohol detox. Sinus tachycardia: -Possibly due to alcohol withdrawal and anxiety. -We will monitor the patient on telemetry floor for any pauses or worsening of tachycardia -We will treat patient with Ativan for alcohol withdrawal possibly it will help her to control her tachycardia. Alcohol withdrawal: -We will keep the patient on CIWA protocol We will add sertraline 50 mg daily -Increase Ativan to 1.5 every 8 we will taper the dose according to her CIWA score. Discontinue IV Ativan as per psych recommendation Patient will need to follow-up with psych outpatient -Vitamin B12 and folic acid supplementation -IV Zofran as needed for nausea -Tylenol as needed for pain -Po omeprazole Hypokalemia: -Possibly due to alcohol use -Patient has mild hypokalemia we will replete her potassium and follow her potassium level Hypomagnesemia: -Possibly due to alcohol use -Magnesium supplementation and we will monitor her magnesium level Transaminitis: Liver enzymes trending down -Possibly due to alcohol use Right ankle swelling: -Pain management -X-ray of right ankle showed: Moderate soft tissue swelling about the lateral malleolus. - No fracture.Tibiotalar joint effusion. -Ice massage to decrease the swelling. Thrombocytopenia: Low probability for HIT since is a patient was exposed to heparin and the past 3 months during her admission to [facility], her platelet is less than 1 50,000 however it can be due to alcohol abuse we will monitor CBCs DC Lovenox for now -We will monitor her platelet count and a wide any medication that can decrease her platelet count or fuction. History of anxiety and depression: Was started on sertraline 50 mg p.o. daily -Patient is not taking any medication. She denied any suicidal ideation. -Psychiatry recommendation appreciated DVT prophylaxis: Mechanical only Code status: Full code. Problem List: 1. Sinus tachycardia 2. Alcohol dependence with withdrawal delirium Pain Ratin Pain Location: N/A Pain Goal: Remain pain free Pain Plan: Pathway Tomorrow's Labs & Rationales: cbc aleciap Jazmyne Newton 12/02/17 1250: Attending MD Review Statement Attending Statement Attending MD Statement: examined this patient, discuss w/resident/PA/ELEMENTARY PRINCIPAL, agreed w/resident/PA/ELEMENTARY PRINCIPAL, discussed with family, reviewed EMR data (avail), discussed with nursing, discussed with case mgmt, reviewed images, amended to note Attending Assessment/Plan: Patient seen/examined bedsdie. C diff is negative. Increased BP this am. Patient overnight CIWA 9-16. Taper ativan Continue with electrolytes replacement as needed Uncontrolled hypertension resume atenolol home meds. Obtain ECHO. hypothyroid histroy resume levothyroxine 0.75 mcg Hypokalemia resolved. gi/dvt prophyalxis pyshc appreciated and needs IOP referral to [facility].
[2017-12-02 12:00] VITALS: BP 144/90; BP 144/96
[2017-12-02 12:41] VITALS: BP 144/96
--- NOTE | 2017-12-02 14:23 | PN- Psychiatry ---
Assessment/Plan Impression: Alcohol detox continued. Vital signs normal. Patient was hypertensive but this is improved since home atenolol was resumed. Patient still reports that she is motivated for treatment on discharge. She does not wish for an appointment at present. Suggestion: Continue detox as per medicine. Suggest discontinuing IV lorazepam at this time. The patient will need an appointment for within IOP on discharge Subjective Subjective: Patient is complaining of feeling tired. She is motivated for sobriety. Review of Systems: Alert and oriented 3. Gait not tested. Vital signs normal. Pleasant and cooperative. Euthymic, not suicidal or homicidal. No psychotic symptoms. Cognition intact. Judgment unimpaired. Motivated for sobriety. Objective Last 24 Hrs of Vital Signs/I&O Vital Signs Date Time Temp Pulse Resp B/P B/P Pulse O2 O2 Flow FiO2 Mean Ox Delivery Rate 12/02 1241 98.3 96 20 144/96 99 Room Air 12/02 1200 98.3 96 20 144/90 12/02 1200 98.3 96 20 144/96 95 Room Air Room Air 12/02 0755 122 160/110 12/02 0701 97.9 122 20 160/112 98 Room Air 12/02 0600 108 160/108 12/01 2205 98.1 93 20 126/88 98 Room Air 12/01 2200 88.0 Intake & Output 12/02 1600 12/02 0800 12/02 0000 Intake Total 680 200 Output Total Balance 680 200 Intake, Oral 680 200 Patient 97.239 kg Weight Physical Exam: Well-documented elsewhere
[2017-12-02 18:00] VITALS: BP 122/80
[2017-12-02 21:52] VITALS: BP 130/84
[2017-12-03] VITALS: BP 122/84
[2017-12-03 06:31] VITALS: BP 136/88
--- NOTE | 2017-12-03 07:17 | PN- Housestaff ---
Ish HAIR,Dannielle 12/03/17 0717: Subjective Follow-up For: Alcohol abuse/withdrawal Hypertension Hypothyroidism Anxiety/depression Transaminitis Tele-Events Since Last Visit: Sinus rhythm, 84, 0.06, 0.12 Subjective: Patient was seen and examined, vital signs stable, she complains of headache and anxiety, CIWA 06, of IV Ativan, on p.o. Ativan 1.5 q. 8 Review of Systems Constitutional: Reports: see HPI. Objective Last 24 Hrs of Vital Signs/I&O Vital Signs Date Time Temp Pulse Resp B/P B/P Pulse O2 O2 Flow FiO2 Mean Ox Delivery Rate 12/03 1017 98.1 90 20 136/88 12/03 0631 98.1 90 20 136/88 96 Room Air 12/03 0000 98.4 85 20 122/84 12/03 0000 98.4 85 20 122/84 96 Room Air Room Air 12/02 2152 98.5 98 20 130/84 98 Room Air 12/02 1800 116 18 122/80 12/02 1800 118 18 122/80 97 Room Air Intake & Output 12/03 1600 12/03 0800 12/03 0000 Intake Total 600 1200 Output Total Balance 600 1200 Intake, Oral 600 1200 Number 1 Bowel Movements Patient 215 lb Weight Weight Bed scale Measurement Method Physical Exam General Appearance: Alert, Oriented X3, Cooperative, No Acute Distress HEENT: Atraumatic, PERRLA, EOMI, Mucous Membr. moist/pink Cardiovascular: Normal S1, Normal S2, No Murmurs Lungs: Clear to Auscultation Abdomen: Normal Bowel Sounds, Soft, No Tenderness Neurological: Normal Speech, Strength at 5/5 X4 Ext, Normal Tone, Sensation Intact, Cranial Nerves 3-12 NL Extremities: No Clubbing, No Cyanosis, No Edema Assessment/Plan Assessment: 42 YO F with PMH of HTN, hypothyroidism, anxiety, depression, heroine use and alcohol abuse was brought to ED requesting for alcohol detox. Alcohol withdrawal: -We will keep the patient on CIWA protocol Continue sertraline 50 mg daily -Decreased p.o. Ativan to 1 mg every 12 Discontinue IV Ativan as per psych recommendation Patient will need to follow-up with psych outpatient -Vitamin B12 and folic acid supplementation -IV Zofran as needed for nausea -Tylenol as needed for pain -Po omeprazole Sinus tachycardia: -Possibly due to alcohol withdrawal and anxiety. -We will monitor the patient on telemetry floor for any pauses or worsening of tachycardia -We will treat patient with Ativan for alcohol withdrawal possibly it will help her to control her tachycardia. Hypokalemia: -Possibly due to alcohol use -Patient has mild hypokalemia we will replete her potassium and follow her potassium level Hypomagnesemia: -Possibly due to alcohol use -Magnesium supplementation and we will monitor her magnesium level Transaminitis: Liver enzymes trending down -Possibly due to alcohol use Right ankle swelling: -Pain management -X-ray of right ankle showed: Moderate soft tissue swelling about the lateral malleolus. - No fracture.Tibiotalar joint effusion. -Ice massage to decrease the swelling. Thrombocytopenia: Improving low probability for HIT since is a patient was exposed to heparin and the past 3 months during her admission to [facility], her platelet is less than 1 50,000 however it can be due to alcohol abuse we will monitor CBCs DC Lovenox for now -We will monitor her platelet count and a wide any medication that can decrease her platelet count or fuction. History of anxiety and depression: Continue sertraline 50 mg p.o. daily -Patient is not taking any medication. She denied any suicidal ideation. -Psychiatry recommendation appreciated Possible discharge over the weekend DVT prophylaxis: Mechanical only Code status: Full code. Problem List: 1. Alcohol dependence with withdrawal delirium Pain Ratin Pain Location: N/A Pain Goal: Remain pain free Pain Plan: Pathway Tomorrow's Labs & Rationales: BEP,CBC Jazmyne Newton 12/03/17 1050: Attending MD Review Statement Attending Statement Attending MD Statement: examined this patient, discuss w/resident/PA/UNDERWATER PHOTOGRAPHER, agreed w/resident/PA/UNDERWATER PHOTOGRAPHER, discussed with family, reviewed EMR data (avail), discussed with nursing, discussed with case mgmt, reviewed images, amended to note Attending Assessment/Plan: Patient with ativan taper. No new complanits excpet headache relieved by tylenol. Patient is on ativan taper 1mg q 12 today. Her bp and heart rate is better controlled. Resumed atenolol and levothyroxine as home meds. ECHO pending. Continue with taper and folic acid, thiamine. GI/DVT prophylaxis full code anticipate dc over weekend with completion of taper and detox.
[2017-12-03 08:18] LABS: ABSOLUTE BASOPHIL COUNT 0 /CUMM (0.0-0.2); ABSOLUTE EOSINOPHIL COUNT 0.1 /CUMM (0.0-0.7); ABSOLUTE GRANULOCYTE CT 1.2 /CUMM (1.4-6.5); ABSOLUTE LYMPH COUNT 1.1 /CUMM (1.2-3.4); ABSOLUTE MONOCYTE COUNT 0.3 /CUMM (0.10-0.60); BASOPHIL % 0.6 % (0.0-2.0); EOSINOPHIL % 4.5 % (0-5); GRANULOCYTE % 44.3 % (42.2-75.2); HEMATOCRIT 31.9 % (37-47); MEAN CORPUSCULAR HGB 36.7 PG (27.0-31.0); MEAN CORPUSCULAR HGB CONC 33.6 G/DL (33.0-37.0); MEAN CORPUSCULAR VOLUME 109.4 FL (81.0-99.0); MEAN PLATELET VOLUME 8.3 FL (7.4-10.4); PLATELET COUNT 118 /CUMM (130-400); RBC DISTRIBUTION WIDTH 19.1 % (11.5-14.5); RED BLOOD CELL CT 2.92 /CUMM (4.20-5.40); WHITE BLOOD CELL COUNT 2.8 /CUMM (4.8-10.8)
[2017-12-03] MEDS ORDERED: ATENOLOL50 M1 PO (09:03)
[2017-12-03] MEDS ORDERED: SYNTHROID75 MCG PO (09:03)
--- NOTE | 2017-12-03 11:33 | ECHOCARDIOGRAM REPORT ---
FAWN OLIVERA Age: 42 : 1975 Gender: F Exam Date: 12/02/2017 18:06 Exam Location: [place] Ht (in): 64 Wt (lb): 214 BSA: 2.14 BP: 160 / 110 Ordering Physician: Carmine Malcolm MD Referring Physician: Carmine Malcolm MD Technologist: Marie Terrazas [facility] Room Number: [id number] Indications: PALPITATIONS Rhythm: Sinus Technical Quality: Good FINDINGS Left Ventricle Normal size left ventricle. No obvious regional wall motion abnormalities. Normal left ventricular ejection fraction estimated at 55-60%. Right Ventricle Normal right ventricular size and function. Right Atrium Normal right atrial size. Left Atrium Normal left atrial size. Mitral Valve Structurally normal mitral valve. [id number] mitral regurgitation. Aortic Valve Trileaflet aortic valve. Focal thickening of the aortic valve cusps. No aortic stenosis. Trace aortic regurgitation. Tricuspid Valve Tricuspid valve not well visualized, grossly normal. Trace tricuspid regurgitation. Pulmonic Valve Structurally normal pulmonic valve. Pericardium No pericardial effusion. Great Vessels Normal size aortic root and proximal ascending aorta. CONCLUSIONS 1. Minimal aortic sclrosis is present with minimal aortic insufficiency. 2. THe mitral valve appears normal. MIld to moderate mitral insufficiency is present. 3. There is no pericardial fluid detected. 4. The left ventricular chamber size and systolic function appear normal. 5. Minimal tricuspid insufficiency is present with no evidence of pulmonary hypertension. Lesley Brewer M.D. (Electronically Signed) Final Date: 03 December 2017 11:32 MEASUREMENTS (Male / Female) Normal Values 2D ECHO LV Diastolic Diameter PLAX 4.8 cm 4.2 - 5.9 / 3.9 - 5.3 cm LV Systolic Diameter PLAX 3.4 cm 2.1 - 4.0 cm LV Fractional Shortening PLAX 29.2 % 25 - 46 % LV Ejection Fraction 2D Teich 55.9 % IVS Diastolic Thickness 1.2 cm LVPW Diastolic Thickness 1.2 cm LV Relative Wall Thickness 0.5 RV Internal Dim ED PLAX 2.9 cm 1.9 - 3.8 cm LVOT Diameter 2.0 cm Aortic Root Diameter 3.5 cm LA Systolic Diameter LX 3.8 cm 3.0 - 4.0 / 2.7 - 3.8 cm LA Volume 30.0 cm 18 - 58 / 22 - 52 cm Ascending Aorta Diameter 3.2 cm DOPPLER AV Peak Velocity 114.0 cm/s AV Peak Gradient 5.2 mmHg AV Mean Velocity 82.8 cm/s AV Mean Gradient 3.0 mmHg AV Velocity Time Integral 20.2 cm LVOT Peak Velocity 105.0 cm/s LVOT Peak Gradient 4.4 mmHg LVOT Mean Velocity 75.5 cm/s LVOT Mean Gradient 3.0 mmHg LVOT Velocity Time Integral 19.6 cm LVOT Stroke Volume 61.6 cm AV Area Cont Eq vti 3.0 cm AV Area Cont Eq pk 2.9 cm MV Peak Velocity 121.0 cm/s MV Peak Gradient 5.9 mmHg MV Mean Velocity 79.3 cm/s MV Mean Gradient 3.0 mmHg Mitral E Point Velocity 103.0 cm/s Mitral A Point Velocity 93.3 cm/s Mitral E to A Ratio 1.1 MV PHT Velocity 126.0 cm/s MV Deceleration [place] 673.0 cm/s MV Pressure Half Time 56.2 ms MV Area PHT 3.9 cm MV Deceleration Time 127.0 ms TR Peak Velocity 87.6 cm/s TR Peak Gradient 3.1 mmHg Right Atrial Pressure 5.0 mmHg Pulmonary Artery Systolic Pressu 8.1 mmHg Right Ventricular Systolic Press 8.1 mmHg PV Peak Velocity 94.0 cm/s PV Peak Gradient 3.5 mmHg PV Mean Velocity 65.7 cm/s PV Mean Gradient 2.0 mmHg PV Velocity Time Integral 18.5 cm LV E' Lateral Velocity 10.2 cm/s Mitral E to LV E' Lateral Ratio 10.1 LV E' Septal Velocity 8.7 cm/s Mitral E to LV E' Septal Ratio 11.9
--- NOTE | 2017-12-03 13:41 | Discharge Summary ---
Visit Information Visit Dates Admission Date: 11/28/17 Discharge Date: 12/04/17 Hospital Course Course Attending Physician: Jazmyne Newton MD Primary Care Physician: Neo Michael MD Hospital Course: 42 YO F with PMH of HTN, hypothyroidism, anxiety, depression, heroine use and alcohol abuse was brought to ED requesting for alcohol detox. Patient reported that she was admitted for alcohol detox in [facility] [place] one months back. She reported that she remained sober for 2 weeks and then she again started to drink. According to patient she is drinking 1 L of vodka everyday and her last drink was 24 hours back. Patient then decided to quit drinking and developed withdrawal symptoms. Patient reported that she is feeling nauseous and anxious. She also reported having shakiness in her body and palpitations. She also reported that she had 3-4 episodes of vomiting. Her vomitus was yellowish watery content, nonbloody and [id number]. ED course: Vitals: Temperature 99.0, pulse 138, respiratory rate 20, blood pressure 148/101 , oxygen saturation 97% on room air Labs: WBC count 4.7, hemoglobin 11.9, hematocrit 34.8, platelet count 125, sodium 139, potassium 3.1, BUN 3, creatinine 0.7, anion gap 18, BUNs/creatinine ratio 4.3, glucose 106, calcium 8.5, magnesium 1.3, total bilirubin 1.0, AST 228 , ALT 107, alkaline phosphatase 253, albumin 3.6, total protein 6.8, lipase 170 Echocardiogram: 1. Minimal aortic sclrosis is present with minimal aortic insufficiency. 2. THe mitral valve appears normal. MIld to moderate mitral insufficiency is present. 3. There is no pericardial fluid detected. 4. The left ventricular chamber size and systolic function appear normal. 5. Minimal tricuspid insufficiency is present with no evidence of pulmonary hypertension. Patient received multiple doses of Ativan in ED. She was admitted to telemetry floor considering patient's sinus tachycardia: Sinus tachycardia: On admission the patient was found to have tachycardia possibly due to alcohol withdrawal and anxiety. She was monitored on telemetry floor. Echocardiogram did not show any structural heart disease. Her heart rate normalized while she was in the hospital When her withdrawal symptoms improved Alcohol withdrawal: Was monitored by [facility] protocol. She was treated with IV Ativan as needed, in addition to oral Ativan taper.Vitamin B12 and folic acid supplementation in addition to IV Zofran as needed for nausea Hypokalemia, hypomagnesemia: Possibly due to alcohol use -Patient has mild hypokalemia we will replete her potassium and follow her potassium level Was repleted Transaminitis: -Possibly due to alcohol use Her liver function trended down but remained higher than normal. Right ankle swelling: -Pain management, X-ray of right ankle showed: Moderate soft tissue swelling about the lateral malleolus, No fracture.Tibiotalar joint effusion, Ice massage to decrease the swelling. Thrombocytopenia: On admission platelet counts was 83, increased to 118, Possibly due to alcohol use, We will monitor her platelet count . Heparin was avoided not to worsen thrombocytopenia History of anxiety and depression: Patient was seen by psychiatrist, she was a started on sertraline 50 mg daily, she needs to follow-up with outpatient psychiatry. DVT prophylaxis: Mechanical with ALPS Code status: Full code. Allergies: Coded Allergies: No Known Allergies (11/28/17) Disposition Summary Disposition Principal Diagnosis: Alcohol dependence with withdrawal Additional Diagnosis: Transaminitis anxiety depression Thrombocytopenia Discharge Disposition: home or self care Discharge Instructions General Discharge Information Code Status: Full Code Patient's Diet: Regular diet Patient's Activity: As tolerated Follow-Up Instructions/Appts: 1please follow-up with your PCP in 1 week of discharge 2please follow-up with outpatient psychiatry in 1 week of discharge 3please refrain from using alcohol Medications at Discharge Discharge Medications: Continue taking these medications: Pantoprazole Sodium (Pantoprazole Sodium) 40 MG TABLET.DR 1 Tablet ORAL DAILY Instructions: NOT TAKEN AT THE HOSPITAL Folic Acid (Folic Acid) 1 MG TABLET 1 Tablet ORAL DAILY Comments: Last Taken:12/04/17 Time:09;00 Atenolol (Atenolol) 50 MG TABLET 1 Tablet ORAL DAILY Comments: Last Taken: 11/3017 Time:09;00AM Levothyroxine Sodium (Synthroid) 75 MCG TABLET 1 Tablet ORAL DAILY Comments: Last Taken:12/04/17 Time:07;00AM Start taking the following new medications: Sertraline HCl (Sertraline HCl) 50 MG TABLET 50 Milligram ORAL DAILY Qty = 30 No Refills Comments: Last Taken:12/04/17 Time:09;00AM Melatonin (Melatonin) 5 MG TABLET 5 Milligram ORAL AT BEDTIME Qty = 30 No Refills Comments: Last Taken:12/03/17 Time 9 PM Multivitamin (Multivitamins) 1 EACH CAPSULE 1 Capsule ORAL DAILY Qty = 30 No Refills Comments: Last Taken:12/04/17 Time:09;00AM Copies To: Fernanda HAIR,Neo Kahn
[2017-12-03] MEDS ORDERED: MULTIVITAMINS1 EAC8 PO (13:44)
[2017-12-03] MEDS ORDERED: MELATONIN5 M7 PO (13:44)
[2017-12-03] MEDS ORDERED: SERTRALINE HCL50 MG PO (13:44)
--- NOTE | 2017-12-03 13:46 | Patient Discharge Instructions ---
Discharge Instructions General Discharge Information You were seen/treated for: Alcohol dependence with withdrawal Special Instructions: 1please follow-up with your PCP in 1 week of discharge 2please follow-up with outpatient psychiatry in 1 week of discharge 3please refrain from using alcohol Diet Continue normal diet: No Acute Coronary Syndrome Inclusion Criteria At DC or during hospital stay patient has or had the following: ACS DIAGNOSIS No Discharge Core Measures Meds if any: Prescribed or Continued at Discharge Meds if any: NOT Prescribed or Continued at Discharge Congestive Heart Failure Inclusion Criteria At DC or during hospital stay patient has or had the following: CHF DIAGNOSIS No Discharge Core Measures Meds if any: Prescribed or Continued at Discharge Meds if any: NOT Prescribed or Continued at Discharge Cerebrovascular accident Inclusion Criteria At DC or during hospital stay patient has or had the following: CVA/TIA Diagnosis No Discharge Core Measures Meds if any: Prescribed or Continued at Discharge Meds if any: NOT Prescribed or Continued at Discharge Venous thromboembolism Inclusion Criteria VTE Diagnosis No VTE Type NONE VTE Confirmed by (Test) NONE Discharge Core Measures - Per Current guidelines, there needs to be overlap - treatment for the first 5 days of Warfarin therapy. - If discharged on Warfarin prior to 5 days of - overlap therapy, the patient will need to be - assessed for post discharge needs including - *Post discharge parental anticoagulation - *Warfarin and/or parental anticoagulation education - *Follow up date to check INR post discharge At least 5 days overlap therapy as Inpatient No Meds if any: Prescribed or Continued at Discharge Note: Overlap Therapy is Warfarin and Anticoagulant Meds if any: NOT Prescribed or Continued at Discharge
[2017-12-03 14:21] VITALS: BP 122/63
[2017-12-03 22:10] VITALS: BP 118/72
[2017-12-04 06:47] VITALS: BP 120/82
[2017-12-04 09:00] LABS: ABSOLUTE BASOPHIL COUNT 0 /CUMM (0.0-0.2); ABSOLUTE EOSINOPHIL COUNT 0.1 /CUMM (0.0-0.7); ABSOLUTE GRANULOCYTE CT 1.6 /CUMM (1.4-6.5); ABSOLUTE LYMPH COUNT 1.2 /CUMM (1.2-3.4); ABSOLUTE MONOCYTE COUNT 0.4 /CUMM (0.10-0.60); BASOPHIL % 0.9 % (0.0-2.0); EOSINOPHIL % 3.3 % (0-5); GRANULOCYTE % 48.4 % (42.2-75.2); HEMATOCRIT 34.7 % (37-47); MEAN CORPUSCULAR HGB CONC 33.8 G/DL (33.0-37.0); MEAN CORPUSCULAR VOLUME 109.4 FL (81.0-99.0); MEAN PLATELET VOLUME 8.4 FL (7.4-10.4); PLATELET COUNT 146 /CUMM (130-400); RBC DISTRIBUTION WIDTH 18.6 % (11.5-14.5); RED BLOOD CELL CT 3.17 /CUMM (4.20-5.40); WHITE BLOOD CELL COUNT 3.4 /CUMM (4.8-10.8)
--- NOTE | 2017-12-04 10:00 | PN- Housestaff ---
Subjective Follow-up For: Alcohol abuse / withdrawal Subjective: Patient was seen and examined this morning, no overnight events reported by the patient or the nurses. No acute distress, vital signs are stable. CIWA SCORE IS 1 Review of Systems Constitutional: Reports: see HPI. Objective Last 24 Hrs of Vital Signs/I&O Vital Signs Date Time Temp Pulse Resp B/P B/P Pulse O2 O2 Flow FiO2 Mean Ox Delivery Rate 12/04 0928 70 120/82 12/04 0647 98.5 70 18 120/82 96 Room Air 12/04 0000 Room Air 12/03 2210 98.3 65 10 118/72 96 12/03 1421 98.0 76 18 122/63 96 Room Air 12/03 1017 98.1 90 20 136/88 Intake & Output 12/04 1600 12/04 0800 12/04 0000 Intake Total 1000 1500 Output Total Balance 1000 1500 Intake, Oral 1000 1500 Patient 97.097 kg Weight Physical Exam General Appearance: Alert, Oriented X3, Cooperative, No Acute Distress Skin: No Rashes, No Breakdown Skin Temp/Moisture Exam: Warm/Dry HEENT: Atraumatic, PERRLA, EOMI, Mucous Membr. moist/pink Neck: Supple Cardiovascular: Regular Rate, Normal S1, Normal S2, No Murmurs Lungs: Clear to Auscultation, Normal Air Movement Abdomen: Normal Bowel Sounds, Soft, No Tenderness, No Hepatospenomegaly, No Masses Neurological: Normal Gait, Normal Speech, Strength at 5/5 X4 Ext, Normal Tone, Sensation Intact, Cranial Nerves 3-12 NL, Reflexes 2+ Extremities: No Clubbing, No Cyanosis, No Edema, Normal Pulses, No Tenderness/ Swelling Assessment/Plan Assessment: 42 YO F with PMH of HTN, hypothyroidism, anxiety, depression, heroine use and alcohol abuse was brought to ED requesting for alcohol detox. Alcohol withdrawal: Continue Ativan 1 mg every 12 CIWA score Altrax for anxiety Rozerem for sleep Patient is stable for discharge today to follow-up as an outpatient with psychiatric A prescription of 3 tablets of Ativan was signed in patient chart Problem List: 1. Alcohol dependence with withdrawal delirium Pain Ratin Pain Location: n/a Pain Goal: Pain 4 or less Pain Plan: See medication Tomorrow's Labs & Rationales: n/a
[2017-12-04 14:13] VITALS: BP 116/58
== END 2017-12-04 15:30 | DRG 897 ==
LOC: ERH 17:49 → ERHI 21:00 → 1NO 21:00 → ENRESERV 22:17 → 1NO 11-29 00:26 → ENPENDDIS 12-04 10:21 → 1NO 12-04 15:30
PROVIDERS: Emergency Medicine; Internal Medicine Interventional Cardiology; Student in an Organized Health Care Education/Training Program
DX: F10.239 Alcohol dependence with withdrawal, unspecified (principal); F33.1 Major depressive disorder, recurrent, moderate; D69.6 Thrombocytopenia, unspecified; E83.42 Hypomagnesemia; R00.0 Tachycardia, unspecified; I10 Essential (primary) hypertension; E03.9 Hypothyroidism, unspecified; F41.9 Anxiety disorder, unspecified; E87.6 Hypokalemia; D53.9 Nutritional anemia, unspecified; R19.7 Diarrhea, unspecified; F11.21 Opioid dependence, in remission
CPT/HCPCS: 1NP; ERO; 36415; 36592; 73610-RT; 80307; 82436; 93005; 93010; 93306; 96374; 96375; 96376; 97110-GO; 97116-GO; 97161-GP; G0480; J0131; J1650; J1885; J2060; J2405; J2550; J3250; J3490; J7060

== ENCOUNTER 2017-12-15 19:48 | Inpatient (IN) | payer OTHER ==
[~2017-12-15] VITALS: Ht 162.6 cm; Wt 99.3 kg
[~2017-12-15 19:48] MED LIST: ATENOLOL50 M1 PO; FOLIC ACID1 M1 PO; MELATONIN5 M7 PO; MULTIVITAMINS1 EAC8 PO; PANTOPRAZOLE SO40 M1 PO; SERTRALINE HCL50 MG PO; SYNTHROID75 MCG PO
--- NOTE | 2017-12-15 20:17 | ED PSYCHIATRIC COMPLAINT ---
History of Present Illness General Chief Complaint: ETOH/Drug Related Complaint Stated Complaint: REQUESTING ALCOHOL DETOX, ANXIETY Source: patient, old records, EMS Exam Limitations: no limitations Vital Signs & Intake/Output Vital Signs & Intake/Output Vital Signs Date Time Temp Pulse Resp B/P B/P Pulse O2 O2 Flow FiO2 Mean Ox Delivery Rate 12/15 2101 98.9 118 18 152/96 12/16 2023 98.7 116 20 148/92 12/15 2014 98.7 116 20 148/92 97 Room Air Allergies Coded Allergies: No Known Allergies (11/28/17) Reconcile Medications Atenolol 50 MG TABLET 1 TAB PO DAILY HIGH BLOOD PRESSURE (Reported) Folic Acid 1 MG TABLET 1 TAB PO DAILY SUPPLEMENT (Reported) Levothyroxine Sodium (Synthroid) 75 MCG TABLET 1 TAB PO DAILY THYROID PROBLEMS (Reported) Magnesium Oxide (Magnesium) (Unknown Strength) CAPSULE (Unknown Dose) PO DAILY SUPPLEMENT (Reported) Melatonin 5 MG TABLET 5 MG PO AT BEDTIME SLEEP Multivitamin (Multivitamins) 1 EACH CAPSULE 1 CAP PO DAILY SUPPLEMENT Pantoprazole Sodium 40 MG TABLET.DR 1 TAB PO DAILY GERD (Reported) NOT TAKEN AT THE HOSPITAL Potassium Chloride 20 MEQ TAB.ER.PRT 1 TAB PO BID SUPPLEMENT (Reported) Sertraline HCl 50 MG TABLET 50 MG PO DAILY DEPRESSION Triage Note: PT BIBA FROM HOME REQUESTING ALCOHOL DETOX. PT STATES SHE WAS HERE LAST WEEK FOR THE SAME. DENIES HX WITHDRAWAL SEIZURES. PT STATES SHE IS FEELING VERY ANXIOUS AT THIS TIME. LAST DRINK 24 HOURS AGO. SECURITY AT [facility] FOR WANDING AT THIS TIME. Triage Nurses Notes Reviewed? yes Onset: Yesterday 10 AM Duration: hour(s):, constant, continues in ED, getting worse Timing: recent history Severity: severe Associated Symptoms: anxiety, impaired concentration LMP (ages 10-50): unknown : No Patient currently breastfeeds: No HPI: Patient admits to alcohol abuse drinking up to a liter daily. Her last drink was 21 hours prior to admission. She complains of being shaky jittery and anxious nauseous with chills. She denies fever vomiting diarrhea chest pain cough shortness breath headache dysuria rash bleeding suicidal ideation homicidal ideation hallucination. Past History Travel History Traveled to [place] past 21 day No Medical History Any Pertinent Medical History? see below for history Cardiovascular: hypertension Hepatic: alcoholic hepatitis Psychiatric: alcohol dependence, anxiety, depression Endocrine: hypothyroidism History of MRSA: No History of VRE: No History of CDIFF: No Surgical History Surgical History: non-contributory Psychosocial History Who do you live with Spouse What is your primary language Persian Tobacco Use: Never used ETOH Use: alcoholic Illicit Drug Use: denies illicit drug use Family History Hx Contributory? No Review of Systems Review of Systems Constitutional: Reports: no symptoms. EENTM: Reports: no symptoms. Respiratory: Reports: no symptoms. Cardiovascular: Reports: no symptoms. GI: Reports: see HPI, nausea. Genitourinary: Reports: no symptoms. Musculoskeletal: Reports: no symptoms. Skin: Reports: no symptoms. Neurological/Psychological: Reports: see HPI, anxiety, confusion, emotional problems. Hematologic/Endocrine: Reports: no symptoms. Immunologic/Allergic: Reports: no symptoms. All Other Systems: Reviewed and Negative Physical Exam Physical Exam General Appearance: well developed/nourished, alert, awake, anxious, moderate distress Head: atraumatic, normal appearance Eyes: Bilateral: normal appearance, PERRL, EOMI. Ears, Nose, Throat: normal pharynx, normal ENT inspection, hearing grossly normal Neck: normal inspection, supple, full range of motion, no midline tenderness Respiratory: normal breath sounds, chest non-tender, no respiratory distress, quiet respiration, lungs clear Cardiovascular: regular rate/rhythm, normal peripheral pulses, norml femoral pulses equa Gastrointestinal: normal bowel sounds, soft, non-tender, no organomegaly Extremities: normal range of motion, no ligament instability Neurological/Psychiatric: no motor/sensory deficits, awake, agitated, alert, anxious, drug and alcohol treatment specialist II-XII nml as tested, oriented x 3 Appearance/Memory/Insight: disheveled, impaired insight Behavoir/Eye Contact/Speech: cooperative, normal speech Thoughts/Hallucinations: no apparent hallucination Skin: intact, normal color, warm/dry SAD PERSONS Done? patient not suicidal CAGE (2/more=possible [place] CAGE (2/more=possible [place] Response Value Cut Down? yes 1 Annoyed? yes 1 Guilty? yes 1 Eye Cushion Padder? yes 1 Total 4 Progress Differential Diagnosis: drug intoxication, drug overdose, drug withdrawal, electrolyte abnormality, hypoglycemia Plan of Care: Orders Procedure Date/time Status Regular Diet 12/16 B Active Patient Data 12/15 2138 Active Intake & Output 12/15 2118 Active OXYGEN SETUP (GEN) 12/15 2105 Active Saline Lock 12/15 2105 Active Admit to inpatient 12/15 2105 Active Vital Signs 12/15 2105 Active Activity/Ambulation 12/15 2105 Active Code Status 12/15 2105 Active CIWA 12/15 2014 Active TSH REFLEX 12/15 2014 Active MAGNESIUM 12/15 2014 Active ETHANOL 12/15 2014 Active COMPREHENSIVE METABOLIC PANEL 12/15 2014 Active CBC WITHOUT DIFFERENTIAL 12/15 2014 Complete Current Medications Sig/Shantell Start time Last Medication Dose Stop Time Status Admin Lorazepam 2 MG ONE ONE 12/15 2114 CAN (Ativan) 12/16 2115 Laboratory Tests 12/15/17 2100: Anion Gap 17 H, Estimated GFR > 60, BUN/Creatinine Ratio 13.3, Glucose 112 H, Calcium 8.7, Magnesium 1.7, Total Bilirubin 0.7, AST 185 H, ALT 165 H, Alkaline Phosphatase 288 H, Total Protein 6.9, Albumin 3.7, Globulin 3.2, Albumin/Globulin Ratio 1.2, TSH &T3 &Free T4 Intrp Pending, CBC w Diff NO MAN DIFF REQ, RBC 3.40 L, MCV 104.4 H, MCH 35.7 H, MCHC 34.2, RDW 17.7 H, MPV 7.3 L, Gran % 79.0 H, Lymphocytes % 14.9 L, Monocytes % 5.1, Eosinophils % 0.6, Basophils % 0.4, Absolute Granulocytes 5.4, Absolute Lymphocytes 1.0 L, Absolute Monocytes 0.3, Absolute Eosinophils 0, Absolute Basophils 0, Serum Alcohol 46.0 Departure Departure Disposition: STILL A PATIENT Condition: Stable Clinical Impression Primary Impression: Alcohol dependence with withdrawal Referrals: Fernanda HAIR,Neo Kahn (PCP/Family) Departure Forms: Customer Survey General Discharge Information Admission Note Spoke With: Chiqui HAIR,Ankur Documentation of Exam: Documentation of any treatments & extenuating circumstances including Concerns Regarding Discharge (functional status, medication knowledge or non-compliance, living conditions, etc.) that warrant an admission rather than observation: Serial CIWA benzodiazepine to prevent seizures DT's medication adjustment psychiatric evaluation for alcohol dependence continuing care discharge planning Alcohol Withdrawl Admission ED Alcohol Detox Admission d/t: CIWA Score >15 Critical Care Note Critical Care Note Critical Care Time: 30-74 min (35)
[2017-12-15] MEDS ORDERED: MAGNESIUM500 M2 PO (20:57)
[2017-12-15] MEDS ORDERED: POTASSIUM CHLO20 ME2 PO (20:57)
[2017-12-15 21:02] VITALS: BP 152/96
[2017-12-15 21:09] LABS: ABSOLUTE BASOPHIL COUNT 0 /CUMM (0.0-0.2); ABSOLUTE EOSINOPHIL COUNT 0 /CUMM (0.0-0.7); ABSOLUTE GRANULOCYTE CT 5.4 /CUMM (1.4-6.5); ABSOLUTE MONOCYTE COUNT 0.3 /CUMM (0.10-0.60); BASOPHIL % 0.4 % (0.0-2.0); EOSINOPHIL % 0.6 % (0-5); HEMATOCRIT 35.5 % (37-47); MEAN CORPUSCULAR HGB 35.7 PG (27.0-31.0); MEAN CORPUSCULAR HGB CONC 34.2 G/DL (33.0-37.0); MEAN CORPUSCULAR VOLUME 104.4 FL (81.0-99.0); MEAN PLATELET VOLUME 7.3 FL (7.4-10.4); PLATELET COUNT 338 /CUMM (130-400); RBC DISTRIBUTION WIDTH 17.7 % (11.5-14.5); WHITE BLOOD CELL COUNT 6.8 /CUMM (4.8-10.8)
--- NOTE | 2017-12-15 21:40 | History & Physical ---
Kwasi HAIR,[facility] 12/15/17 2201: General Information and HPI MD Statement: I have seen and personally examined FAWN OLIVERA and documented this H&P. The patient is a 42 year old F who presented with a patient stated chief complaint of [Alcohol Detox]. Source of Information: patient Exam Limitations: no limitations History of Present Illness: Ms. Olivera is a 42 y/o lady with pmh significant for hypertension, alcoholic hepatitis, alcohol dependence, anxiety, depression, hypothyroidism presents for Alcohol detox. According to the patient she started drinking 7 months ago after some family stresses and has been drinking almost a liter of Vodka a day on and off since then. Her last drink was on Wednesday around 5 PM. States he started feeling shaky yesterday and felt palpitations that's why she came to the hospital for detox. She also reports diaphoresis, headache, nausea and an episode of vomiting at home. Denies any history of withdrawal seizures, or admission to the ICU in the past. Also denie any SI and HI ideations. Allergies/Medications Allergies: Coded Allergies: No Known Allergies (11/28/17) Home Med list Atenolol 50 MG TABLET 1 TAB PO DAILY HIGH BLOOD PRESSURE (Reported) Folic Acid 1 MG TABLET 1 TAB PO DAILY SUPPLEMENT (Reported) Levothyroxine Sodium (Synthroid) 75 MCG TABLET 1 TAB PO DAILY THYROID PROBLEMS (Reported) Magnesium Oxide (Magnesium) (Unknown Strength) CAPSULE (Unknown Dose) PO DAILY SUPPLEMENT (Reported) Melatonin 5 MG TABLET 5 MG PO AT BEDTIME SLEEP Multivitamin (Multivitamins) 1 EACH CAPSULE 1 CAP PO DAILY SUPPLEMENT Pantoprazole Sodium 40 MG TABLET.DR 1 TAB PO DAILY GERD (Reported) NOT TAKEN AT THE HOSPITAL Potassium Chloride 20 MEQ TAB.ER.PRT 1 TAB PO BID SUPPLEMENT (Reported) Sertraline HCl 50 MG TABLET 50 MG PO DAILY DEPRESSION Past History Travel History Traveled to [place] past 21 day No Medical History Cardiovascular: hypertension Hepatic: alcoholic hepatitis Psychiatric: alcohol dependence, anxiety, depression Endocrine: hypothyroidism History of MRSA: No History of VRE: No History of CDIFF: No Surgical History Surgical History: non-contributory Past Family/Social History Family History Relations & Conditions if any FATHER FHx: lung cancer UNCLE FHx: lung cancer Relation not specified for: FH: brain cancer Psychosocial History Smoking Status: Never Smoked ETOH Use: alcoholic Illicit Drug Use: denies illicit drug use Functional Ability ADLs Independent: dressing, eating, toileting, bathing. Ambulation: independent IADLs Independent: shopping, housework, finances, food prep, telephone, transportation , medication admin. Review of Systems Review of Systems Constitutional: Reports: diaphoresis. EENTM: Reports: no symptoms. Cardiovascular: Reports: no symptoms. Respiratory: Reports: no symptoms. GI: Reports: nausea, vomiting. Genitourinary: Reports: no symptoms. Musculoskeletal: Reports: no symptoms. Skin: Reports: no symptoms. Neurological/Psychological: Reports: headache, tremors. Hematologic/Endocrine: Reports: no symptoms. Immunologic/Allergic: Reports: no symptoms. All Other Systems: Reviewed and Negative Exam & Diagnostic Data Last 24 Hrs of Vital Signs/I&O Vital Signs Date Time Temp Pulse Resp B/P B/P Pulse O2 O2 Flow FiO2 Mean Ox Delivery Rate 12/16 0026 142/102 12/15 2252 98.3 122 18 142/102 95 Room Air 12/15 2248 Room Air 12/16 2215 98.9 110 18 152/96 97 Room Air 12/15 2213 98.9 110 18 152/96 12/15 2105 98.9 118 18 152/96 96 Room Air 12/15 2101 98.9 118 18 152/96 12/16 2023 98.7 116 20 148/92 12/15 2014 98.7 116 20 148/92 97 Room Air Intake & Output 12/16 0800 12/16 0000 12/15 1600 Intake Total 300 Output Total Balance 300 Intake, Oral 300 Patient 219 lb Weight Weight Reported by Patient Measurement Method Physical Exam General Appearance Alert, Oriented X3, Cooperative, No Acute Distress Skin No Rashes, No Breakdown HEENT Atraumatic, PERRLA, EOMI Cardiovascular Regular Rate, Normal S1, Normal S2 Lungs Clear to Auscultation, Normal Air Movement Abdomen Normal Bowel Sounds, Soft, No Tenderness Neurological Normal Speech, Strength at 5/5 X4 Ext, Normal Tone, Sensation Intact, Cranial Nerves 3-12 NL Extremities No Clubbing, No Cyanosis, No Edema Last 24 Hrs of Labs/Yvon: Laboratory Tests 12/15/17 2100: Anion Gap 17 H, Estimated GFR > 60, BUN/Creatinine Ratio 13.3, Glucose 112 H, Calcium 8.7, Magnesium 1.7, Total Bilirubin 0.7, AST 185 H, ALT 165 H, Alkaline Phosphatase 288 H, Total Protein 6.9, Albumin 3.7, Globulin 3.2, Albumin/Globulin Ratio 1.2, Free T4 0.94, Total T3 1.36, TSH &T3 &Free T4 Intrp 7.510 H, CBC w Diff NO MAN DIFF REQ, RBC 3.40 L, MCV 104.4 H, MCH 35.7 H, MCHC 34.2, RDW 17.7 H, MPV 7.3 L, Gran % 79.0 H, Lymphocytes % 14.9 L, Monocytes % 5.1, Eosinophils % 0.6, Basophils % 0.4, Absolute Granulocytes 5.4, Absolute Lymphocytes 1.0 L, Absolute Monocytes 0.3, Absolute Eosinophils 0, Absolute Basophils 0, Serum Alcohol 46.0 Diagnostic Data EKG Results Sinus Tachycardia QTc 487 Assessment/Plan Assessment: Ms. Olivera is a 42 y/o lady with pmh significant for hypertension, alcoholic hepatitis, alcohol dependence, anxiety, depression, hypothyroidism Vitals on admission were 98.7 HR 116, RR 20, BP 148/92 and O2 sats 97 Room Air on room air. Labs Unremarkable. Problem List; 1. Alcohol Detox 2. Sinus Tachycardia 3. Mild transaminitis; likely secondary to alcohol abuse 4. Chronic medical condition - Admit the patient to general medicine floor - Start the patient on PO Ativan 2 mg every 6 hours - IV Ativan per [facility] protocol - Multivitamin, thiamine and folate - Psych consult; Patient was started on Zoloft by psych during for previous admission, but was never given a prescription. - Clonidine 1 if remains hypotensive and tachycardic. - Repeat LFTs in a.m. - Continue home medications. DVT prophylaxis; Alps and subcutaneous Lovenox Patient is full code As Ranked By This Provider Problem List: 1. Alcohol dependence with withdrawal 2. Sinus tachycardia Core Measures/Misc (02/21) Acute Coronary Syndrome ACS Diagnosis: No Congestive Heart Failure Congestive Heart Failure Diagnosis No Cerebrovascular Accident CVA/TIA Diagnosis: No VTE (View Protocol) VTE Risk Factors Age>40 No Mechanical VTE Prophylaxis d/t N/A MechProphylax Ordered No VTE Pharm Prophylaxis d/t NA PharmProphylax ordered Sepsis (View protocol) Sepsis Present: No If YES complete Sepsis Event Note If YES complete Sepsis Event Note Ankur Florian MD 12/15/17 2333: Core Measures/Misc (02/21) Sepsis (View protocol) If YES complete Sepsis Event Note If YES complete Sepsis Event Note Attending MD Review Statement Attending Statement Attending MD Statement: examined this patient, discuss w/resident/PA/SWITCH OPERATORS SUPERVISOR, agreed w/resident/PA/SWITCH OPERATORS SUPERVISOR, reviewed EMR data (avail) Attending Assessment/Plan: 42F PMH HTN, hypothyroidism, anxiety, depression, heroine use and alcohol abuse was brought to ED requesting for alcohol detox. Recently discharged 2 weeks ago after being treated for alcohol withdrawal, now has been binge drinking. CIWA score 17 in ER, received Ativan, now sleepy. Reports nausea but no vomiting. No other complaints, vitals stable, exam benign. 1. Alcohol withdrawal with delirium 2. Transaminitis Plan - Admit to general medicine - Ativan 2mg PO q6h - Ativan IV PRN CIWA - Trend LFTs - IV hydration - Continue home medications - DVT PPx
[2017-12-15 22:14] VITALS: BP 152/96
[2017-12-15 22:52] VITALS: BP 142/102
[2017-12-16 06:27] VITALS: BP 116/68
--- NOTE | 2017-12-16 08:07 | PN- Housestaff ---
Ro Canales 12/16/17 0803: Subjective Follow-up For: Alcohol withdrawal Subjective: Patient seen and examined at bedside, no acute events overnight, afebrile. Patient endorses symptoms of withdrawal; shaking, headaches, anxiety, irritability, agitation, nausea. Patient denies cravings, double vision/blurry vision, fever, night sweats, chills. Patient states she has been drinking approximately 750 mL's of vodka per day for the past 7 months. Patient is interested in outpatient rehab. Patient also endorses sadness due to family reasons, dad and uncle both have cancer, decreased sleep about 2 hours per night , feels guilty for drinking, says increased appetite and, has gained approximately 100 pounds over the last 7 months. Review of Systems Constitutional: Denies: chills, diaphoresis, fever. Cardiovascular: Denies: chest pain, orthopena. Respiratory: Denies: cough. Gastrointestinal: Denies: abdominal pain, constipation, diarrhea, changes in stool. Objective Last 24 Hrs of Vital Signs/I&O Vital Signs Date Time Temp Pulse Resp B/P B/P Pulse O2 O2 Flow FiO2 Mean Ox Delivery Rate 12/16 626 97.9 81 18 116/68 98 Room Air 12/16 0026 142/102 12/15 225 98.3 122 18 142/102 95 Room Air 12/15 2248 Room Air 12/16 2215 98.9 110 18 152/96 97 Room Air 12/15 2213 98.9 110 18 152/96 12/15 2105 98.9 118 18 152/96 96 Room Air 12/15 2101 98.9 118 18 152/96 12/16 2023 98.7 116 20 148/92 12/15 2014 98.7 116 20 148/92 97 Room Air Intake & Output 12/16 1600 12/16 0800 12/16 0000 Intake Total 240 300 Output Total Balance 240 300 Intake, Oral 240 300 Patient 219 lb Weight Weight Reported by Patient Measurement Method Physical Exam General Appearance: Alert, Oriented X3, Cooperative Skin: No Rashes HEENT: Atraumatic, EOMI Neck: Supple Cardiovascular: Regular Rate, Normal S1, Normal S2 Lungs: Clear to Auscultation, Normal Air Movement Abdomen: Normal Bowel Sounds, Soft, No Tenderness, No Hepatospenomegaly Neurological: Normal Speech, Strength at 5/5 X4 Ext Extremities: No Cyanosis, No Edema, Normal Pulses Vascular: Normal Pulses, Pulses Symmetrical Assessment/Plan Assessment: Pt. is a 42yoF with PMHx significant for Alcoholic Dependence, Alcoholic hepatitis, Hypertension, anxiety and depression, who is presenting for Alcohol Withdrawal. Patient was discharge from approx 2 weeks ago for alcohol withdrawal. Problem List: 1. Alcohol Withdrawal 2. Elevated LFTs 3. Depression 4. Hypothyroidism 5. 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 Alcohol dependence with withdrawal Pain Ratin Pain Location: n/a Pain Goal: Pain 4 or less Pain Plan: none Tomorrow's Labs & Rationales: BEP w/ LFTs Ben Tejeda MD 12/16/17 1731: Attending MD Review Statement Attending Statement Attending MD Statement: examined this patient, discuss w/resident/PA/BOOK CUTTER, agreed w/resident/PA/BOOK CUTTER, reviewed EMR data (avail), discussed with nursing, discussed with case mgmt, amended to note Attending Assessment/Plan: The patient was seen and discussed with house staff, nursing and case management. Will continue detox and follow. Social service consult.
[2017-12-16 11:18] VITALS: BP 100/58
[2017-12-16 15:02] VITALS: BP 100/52
[2017-12-16 21:53] VITALS: BP 120/80
[2017-12-17] VITALS (12 sets, daily range): BP systolic 11–120; BP diastolic 60–85
[2017-12-17] MEDS ORDERED: VITAMIN B-1100 MG PO (07:09)
[2017-12-17] MEDS ORDERED: SYNTHROID100 MCG PO (07:09)
--- NOTE | 2017-12-17 07:11 | Patient Discharge Instructions ---
Discharge Instructions General Discharge Information You were seen/treated for: Alcoholism Watch for these problems: Fever, chest pain, shortness of breath Special Instructions: Please take all medications as directed. Please follow-up with primary care. Diet Continue normal diet: Yes Activity Full Activity/No Limits: Yes Acute Coronary Syndrome Inclusion Criteria At DC or during hospital stay patient has or had the following: ACS DIAGNOSIS No Discharge Core Measures Meds if any: Prescribed or Continued at Discharge Meds if any: NOT Prescribed or Continued at Discharge Congestive Heart Failure Inclusion Criteria At DC or during hospital stay patient has or had the following: CHF DIAGNOSIS No Discharge Core Measures Meds if any: Prescribed or Continued at Discharge Meds if any: NOT Prescribed or Continued at Discharge Cerebrovascular accident Inclusion Criteria At DC or during hospital stay patient has or had the following: CVA/TIA Diagnosis No Discharge Core Measures Meds if any: Prescribed or Continued at Discharge Meds if any: NOT Prescribed or Continued at Discharge Venous thromboembolism Inclusion Criteria VTE Diagnosis No VTE Type NONE VTE Confirmed by (Test) NONE Discharge Core Measures - Per Current guidelines, there needs to be overlap - treatment for the first 5 days of Warfarin therapy. - If discharged on Warfarin prior to 5 days of - overlap therapy, the patient will need to be - assessed for post discharge needs including - *Post discharge parental anticoagulation - *Warfarin and/or parental anticoagulation education - *Follow up date to check INR post discharge At least 5 days overlap therapy as Inpatient No Meds if any: Prescribed or Continued at Discharge Note: Overlap Therapy is Warfarin and Anticoagulant Meds if any: NOT Prescribed or Continued at Discharge
--- NOTE | 2017-12-17 07:46 | PN- Housestaff ---
See Addendum Subjective Follow-up For: Alcohol withdrawal Subjective: Patient seen and examined at bedside, no acute events overnight, afebrile. Patient denies symptoms of withdrawal, cravings, irritability, agitation, abdominal pain. Patient endorses anxiety, states has a history of anxiety, responsive to Ativan. Patient states she is having a light headache, nonresponsive to Tylenol, response to Ativan. Review of Systems Constitutional: Denies: chills, diaphoresis, fever. Cardiovascular: Denies: chest pain, palpitations. Respiratory: Denies: cough, short of breath. Gastrointestinal: Denies: abdominal pain, constipation, diarrhea, changes in stool. Neurological/Psychological: Denies: anxiety, cognitive dysfunction, depressed, emotional problems, numbness, tingling, tremors. Objective Last 24 Hrs of Vital Signs/I&O Vital Signs Date Time Temp Pulse Resp B/P B/P Pulse O2 O2 Flow FiO2 Mean Ox Delivery Rate 12/17 07 97.6 75 18 111/75 98 12/16 2153 98.2 74 16 120/80 97 Room Air 12/16 1502 97.8 80 20 100/52 98 Room Air 12/16 1118 76 100/58 98 12/16 0819 81 116/68 Intake & Output 12/17 0800 12/17 0000 12/16 1600 Intake Total 480 490 950 Output Total Balance 480 490 950 Intake, IV 0 10 Intake, Oral 480 480 950 Number 0 0 Bowel Movements Physical Exam General Appearance: Alert, Oriented X3, Cooperative Skin: No Rashes HEENT: Atraumatic, EOMI Neck: Supple Cardiovascular: Regular Rate, Normal S1, Normal S2 Lungs: Clear to Auscultation, Normal Air Movement Abdomen: Normal Bowel Sounds, Soft, No Tenderness Extremities: No Cyanosis, No Edema, Normal Pulses Assessment/Plan Assessment: Pt. is a 42yoF with PMHx significant for Alcoholic Dependence, Alcoholic hepatitis, Hypertension, anxiety and depression, who is presenting for Alcohol Withdrawal. Patient was discharge from approx 2 weeks ago for alcohol withdrawal. Problem List: 1. Alcohol Withdrawal 2. Elevated LFTs 3. Depression 4. Hypothyroidism 5. Hypertension #Alcohol Withdrawal Patient scoring 0-8 on CIWA for today Plan: -Continue CIWA protol #Elevated LFTs LFTs consistent with alcohol induced liver damage. AST/ALT trending down today 94/107 down from 185/165 on admission Plan: Follow LFTs until they normalize #Depression Plan: Zoloft 50mg #Hypothyroidism Plan: Levothyroxine 0.1mg #Hypertension Plan: Atenolol 50mg fly worker advised patient of IOP options, [facility] in [place] was discussed would be able to walk in on M/T/W of next week. Plan to d/c patinet on Zoloft and f/u w/ PCP. Problem List: 1. Alcohol dependence with withdrawal Pain Ratin Pain Location: n/a Pain Goal: Remain pain free Pain Plan: Tylenol Tomorrow's Labs & Rationales: LFTs
--- NOTE | 2017-12-17 14:47 | Discharge Summary ---
Visit Information Visit Dates Admission Date: 12/15/17 Discharge Date: 12/20/17 Hospital Course Course Attending Physician: Ben Tejeda MD Primary Care Physician: Neo Michael MD Hospital Course: Ms. Mohan is a 42 y/o lady with pmh significant for hypertension, alcoholic hepatitis, alcohol dependence, anxiety, depression, hypothyroidism presents for Alcohol detox. According to the patient she started drinking 7 months ago after some family stresses and has been drinking almost a liter of Vodka a day on and off since then. Her last drink was on Wednesday around 5 PM. States he started feeling shaky yesterday and felt palpitations that's why she came to the hospital for detox. Was discharged from approx 2 weeks ago after completing 5 day detox with ativan. ED Vitals: Vitals on admission were 98.7 HR 116, RR 20, BP 148/9 and O2 sats 97 on RA ED Labs: unremarkable Problem List: 1. Alochol abuse and withdrawal. 2. Transaminitis 3. Hypothyroidism 4. Hypertension ED Course: Patient started on CIWA protocol, Multivitamin, thiamine and folate, and a psych consult was placed because patient was started on Zoloft during prior admission. Patient was admitted to general medicine floor Medicine course: Patients CIWA scores improved rapidly, as she did not display symptoms of withdrawal, but she continued to require ativan for anxiety and had some family stressors (Father and Uncle diagnosed with cancer). CIWA protocol was discontinued on December 19, and patient was tapered down to 1.5mg -> 1.0 -> 0.5mg. Social consult was placed as patient expressed interest in going to rehab , was provided information regarding [facility] in [place]. Patient was discharged home today with Zoloft 50mg, Thiamine 100mg and Levothyroxine 1mg. Patient was instructed and agreed to to check into [facility] on December 21, where they will also manage patient for Anxiety and depression along with alcohol issues. Allergies: Coded Allergies: No Known Allergies (11/28/17) Disposition Summary Disposition Principal Diagnosis: Alcohol Abuse and WIthdrawal Additional Diagnosis: Elevated LFTs Diarrhea Depression Hypothyroidism. Hypertension Discharge Disposition: home or self care Discharge Instructions General Discharge Information Code Status: Full Code Patient's Diet: REgular Patient's Activity: As tolerated Follow-Up Instructions/Appts: Check into [facility]. Follow up with PCP Medications at Discharge Discharge Medications: Stop taking the following medications: Levothyroxine Sodium (Synthroid) 75 MCG TABLET ORAL DAILY Continue taking these medications: Pantoprazole Sodium (Pantoprazole Sodium) 40 MG TABLET.DR 1 Tablet ORAL DAILY Instructions: NOT TAKEN AT THE HOSPITAL Folic Acid (Folic Acid) 1 MG TABLET 1 Tablet ORAL DAILY Comments: Last Taken:12/20/17 Time:7:52 AM Atenolol (Atenolol) 50 MG TABLET 1 Tablet ORAL DAILY Comments: Last Taken: 12/20/17 Time:7:53 AM Sertraline HCl (Sertraline HCl) 50 MG TABLET 50 Milligram ORAL DAILY Qty = 30 Comments: Last Taken:12/20/17 Time: 7:51 AM Melatonin (Melatonin) 5 MG TABLET 5 Milligram ORAL AT BEDTIME Qty = 30 Comments: Last Taken:12/03/17 Time 9 PM Multivitamin (Multivitamins) 1 EACH CAPSULE 1 Capsule ORAL DAILY Qty = 30 Comments: Last Taken:12/20/17 Time:7:51 AM Potassium Chloride (Potassium Chloride) 20 MEQ TAB.ER.PRT 1 Tablet ORAL TWICE DAILY Qty = 60 Magnesium Oxide (Magnesium) (Unknown Strength) CAPSULE Unknown Dose ORAL DAILY Comments: NOT GIVEN IN HOSPITAL Start taking the following new medications: Thiamine HCl (Vitamin B-1) 100 MG TABLET 100 Milligram ORAL DAILY as needed for Alcohol Abuse Qty = 30 No Refills Instructions: . Levothyroxine Sodium (Synthroid) 100 MCG TABLET 0.1 Milligram ORAL DAILY BEFORE BREAKFAST Qty = 30 No Refills Sertraline HCl (Sertraline HCl) 50 MG TABLET 50 Milligram ORAL DAILY Qty = 30 No Refills Sertraline HCl (Sertraline HCl) 50 MG TABLET 50 Milligram ORAL DAILY Qty = 30 No Refills Thiamine HCl (Vitamin B-1) 100 MG TABLET 100 Milligram ORAL DAILY Qty = 30 No Refills Copies To: Fernanda HAIR,Neo Kahn Attending MD Review Statement Documenting Attending: Ben Tejeda MD Other Findings: The patient was seen and discussed with house staff. Agree with plan of care as outlined.
--- NOTE | 2017-12-18 06:43 | PN- Housestaff ---
See Addendum Subjective Follow-up For: EtOH, transaminitis Subjective: No overnight events. Patient had 6 episodes of diarrhea Review of Systems Constitutional: Reports: no symptoms. EENTM: Reports: no symptoms. Cardiovascular: Reports: no symptoms. Respiratory: Reports: no symptoms. Gastrointestinal: Reports: see HPI. Genitourinary: Reports: no symptoms. Musculoskeletal: Reports: no symptoms. Skin: Reports: no symptoms. Neurological/Psychological: Reports: no symptoms. Hematologic/Endocrine: Reports: no symptoms. Immunologic/Allergic: Reports: no symptoms. Objective Last 24 Hrs of Vital Signs/I&O Vital Signs Date Time Temp Pulse Resp B/P B/P Pulse O2 O2 Flow FiO2 Mean Ox Delivery Rate 12/17 1855 98.1 73 20 112/62 96 Room Air 12/17 1800 97.9 77 20 106/60 12/17 1700 97.9 77 20 106/60 12/17 1600 97.8 77 20 106/60 12/17 1511 97.9 77 20 106/60 97 Room Air 12/17 1500 97.9 72 20 106/60 12/17 1400 97.4 73 20 120/85 12/17 1300 97.4 73 20 120/85 12/17 1200 97.4 73 20 120/85 12/17 1000 97.6 75 18 11/75 12/17 0856 75 111/15 12/17 0800 97.6 75 18 111/75 12/17 0712 97.6 75 18 111/75 98 Intake & Output 12/18 0800 12/18 0000 12/17 1600 Intake Total 310 620 740 Output Total Balance 310 620 740 Intake, IV 10 20 Intake, Oral 300 600 740 Number 0 Bowel Movements Physical Exam General Appearance: Alert, Oriented X3, Cooperative, No Acute Distress Cardiovascular: Regular Rate, Normal S1, Normal S2 Lungs: Clear to Auscultation Extremities: No Edema, Normal Pulses, No Tenderness/Swelling Current Medications: Current Medications Sig/Shantell Start time Last Medication Dose Route Stop Time Status Admin Acetaminophen 650 MG .STK-MED ONE 12/17 1529 DC PO 12/17 1530 Acetaminophen 650 MG Q6P PRN 12/15 2314 AC 12/17 PO 1531 Atenolol 50 MG DAILY 12/15 2314 AC 12/17 PO 0856 Enoxaparin Sodium 40 MG 2100 12/15 2314 AC 12/17 SC 2019 Folic Acid 1 MG DAILY 12/15 2314 AC 12/17 PO 0856 Hydroxyzine HCl 25 MG ONCE ONE 12/17 2300 DC 12/17 PO 12/17 230 231 Levothyroxine Sodium 0.1 MG DAILY AC 12/17 0700 AC 12/18 PO 0544 Lorazepam 0.5 MG ONE ONE 12/17 0900 DC 12/17 PO 12/17 0901 0856 Lorazepam 0.5 MG BID 12/16 2100 DC 12/16 PO 12/17 0901 2014 Lorazepam 1 MG Q1P PRN 12/16 1600 AC 12/18 PO 0654 Multivitamins 1 TAB DAILY 12/15 2314 AC 12/17 PO 0856 Omeprazole 40 MG DAILY AC 12/15 2314 AC 12/18 PO 0544 Patient Medication 1 ED ONE ONE 12/17 1330 DC 12/17 Teaching ED 12/17 1331 1412 Ramelteon 8 MG AT BEDTIME 12/17 2100 AC 12/17 PO 2121 Sertraline HCl 50 MG DAILY 12/15 2314 AC 12/17 PO 0856 Thiamine HCl 100 MG DAILY 12/15 2314 AC 12/17 PO 0856 Trimethobenzamide HCl 200 MG 4 TIMES/DAY PRN 12/15 2314 AC 12/17 IM 2229 Last 24 Hrs of Lab/Yvon Results Last 24 Hrs of Labs/Mics: Laboratory Tests 12/17/172129: Urine Opiates Screen < 100, Methadone Screen < 40, Barbiturate Screen < 60, Ur Phencyclidine Scrn < 6.00, Amphetamines Screen < 100, U Benzodiazepines Scrn 141 , Urine Cocaine Screen < 50, Urine Cannabis Screen < 5.00 Microbiology 12/18 2031 STOOL: Clostridium difficile Toxin A & B - COLB Assessment/Plan Assessment: Pt. is a 42yoF with PMHx significant for Alcoholic Dependence, Alcoholic hepatitis, Hypertension, anxiety and depression, who is presenting for Alcohol Withdrawal. Patient was discharge from approx 2 weeks ago for alcohol withdrawal. Problem List: 1. Alcohol Withdrawal 2. Elevated LFTs 3. Depression 4. Hypothyroidism 5. Hypertension #Alcohol Withdrawal Patient scoring low on CIWA. Still complaining of withdrawal symptoms Plan: -Continue CIWA protol #Elevated LFTs LFTs consistent with alcohol induced liver damage. AST/ALT trending down today 94/107 down from 185/165 on admission Plan: Follow LFTs until they normalize #Diarrhea: Will send C diff. #Depression Plan: Zoloft 50mg #Hypothyroidism Plan: Levothyroxine 0.1mg #Hypertension Plan: Atenolol 50mg track worker advised patient of IOP options, [facility] in [place] was discussed would be able to walk in on M/T/W of next week. Plan to d/c patinet on Zoloft and f/u w/ PCP. Problem List: Problem List: 1. Alcohol dependence with withdrawal Pain Ratin Pain Location: no Pain Goal: Remain pain free Pain Plan: see a/p Tomorrow's Labs & Rationales: cbc
[2017-12-18 07:24] VITALS: BP 120/84
[2017-12-18 14:22] VITALS: BP 120/60
[2017-12-18 16:00] VITALS: BP 118/80
[2017-12-18 20:08] VITALS: BP 130/80
[2017-12-19 00:07] VITALS: BP 126/84
[2017-12-19 04:19] VITALS: BP 124/86
--- NOTE | 2017-12-19 11:24 | PN- Housestaff ---
See Addendum Subjective Follow-up For: Alcohol Withdrawal Subjective: Patient was seen and examined at bedside, no acute events overnight, afebrile. Patient denies cravings, irritability, agitation. Patient is c/o decreased appetite secondary to nausea. Continues to experience anxiety, controlled with ativan Review of Systems Constitutional: Denies: chills, diaphoresis, fever. Cardiovascular: Denies: chest pain, palpitations. Respiratory: Denies: cough, short of breath. Gastrointestinal: Reports: nausea. Denies: abdominal pain, constipation, diarrhea, changes in stool. Objective Last 24 Hrs of Vital Signs/I&O Vital Signs Date Time Temp Pulse Resp B/P B/P Pulse O2 O2 Flow FiO2 Mean Ox Delivery Rate 12/19 0810 78 136/78 12/19 0419 97.7 69 20 124/86 97 12/19 0007 97.6 68 20 126/84 96 12/19 2007 98.0 85 18 130/80 12/18 1600 97.9 70 18 118/80 99 Room Air 12/18 1422 98.1 82 18 120/60 98 Intake & Output 12/19 1600 12/19 0800 12/19 0000 Intake Total 460 480 Output Total Balance 460 480 Intake, IV 10 Intake, Oral 450 480 Physical Exam General Appearance: Alert, Oriented X3, Cooperative HEENT: Atraumatic, EOMI Cardiovascular: Regular Rate, Normal S1, Normal S2 Lungs: Clear to Auscultation, Normal Air Movement Abdomen: Normal Bowel Sounds, Soft, No Tenderness Neurological: Normal Speech, Strength at 5/5 X4 Ext Extremities: No Cyanosis, No Edema, Normal Pulses Current Medications: Current Medications Sig/Shantell Start time Last Medication Dose Route Stop Time Status Admin Acetaminophen 650 MG Q6P PRN 12/15 2314 AC 12/17 PO 1531 Atenolol 50 MG DAILY 12/15 2314 AC 12/19 PO 08 Enoxaparin Sodium 40 MG 2100 12/15 2314 AC 12/18 SC 2006 Folic Acid 1 MG DAILY 12/15 PO 0809 Hydroxyzine HCl 25 MG ONCE ONE 12/18 2114 DC 12/18 PO 12/18 Levothyroxine Sodium 0.1 MG DAILY 12/17 07 AC 12/19 PO 0536 Lorazepam 0.5 MG BID PRN 12/19 1445 AC PO 12/26 1444 Lorazepam 0.5 MG Q1P PRN 12/19 1315 DC PO 12/23 1559 Lorazepam 1 MG Q1P PRN 12/16 1600 DC 12/19 PO 1135 Multivitamins 1 TAB DAILY 12/15 2315 AC 12/19 PO 0809 Omeprazole 40 MG BID 12/19 2100 AC PO Omeprazole 40 MG DAILY AC 12/15 2315 DC 12/19 PO 0532 Ondansetron HCl 4 MG ONCE PRN 12/19 1300 AC 12/19 PO 12/19 2300 1312 Ramelteon 8 MG AT BEDTIME 12/17 2100 AC 12/18 PO 2006 Sertraline HCl 50 MG DAILY 12/15 2315 AC 12/19 PO 0809 Thiamine HCl 100 MG DAILY 12/15 2315 AC 12/19 PO 0810 Trimethobenzamide HCl 200 MG 4 TIMES/DAY PRN 12/15 2315 DC 12/17 IM 2229 Last 24 Hrs of Lab/Yvon Results Last 24 Hrs of Labs/Mics: Microbiology 12/19 1999 STOOL: Clostridium difficile Toxin A & B - COLB Assessment/Plan Assessment: Pt. is a 42yoF with PMHx significant for Alcoholic Dependence, Alcoholic hepatitis, Hypertension, anxiety and depression, who is presenting for Alcohol Withdrawal. Patient was discharge from approx 2 weeks ago for alcohol withdrawal. Problem List: 1. Alcohol Withdrawal 2. Elevated LFTs 3. Diarrhea 4. Depression 5. Hypothyroidism 6. Hypertension #Alcohol Withdrawal Patient scoring low on CIWA. Plan: - Completed CIWA protol, only scoring for anxiety - will continue 0.5mg Xanax BID - #Elevated LFTs LFTs consistent with alcohol induced liver damage. AST/ALT trending down today 94/107 down from 185/165 on admission Plan: Follow LFTs until they normalize #Diarrhea Plan: F/u C. diff #Depression Plan: Zoloft 50mg #Hypothyroidism Plan: Levothyroxine 0.1mg #Hypertension Plan: Atenolol 50mg workers compensation claims analyst advised patient of IOP options, [facility] in [place] was discussed would be able to walk in on M/T/W of next week. Plan to d/c patinet on Zoloft and f/u w/ PCP. Patient does not exhibit symptoms of withdrawal and has been scoring low on CIWA, primary concern is anxiety. Problem List: 1. Alcohol dependence with withdrawal Pain Ratin Pain Location: n/a Pain Goal: Remain pain free Pain Plan: Tylenol Tomorrow's Labs & Rationales: none
[2017-12-19] MEDS ORDERED: SERTRALINE HCL50 MG PO (11:51)
[2017-12-19 14:00] VITALS: BP 120/78
[2017-12-19 20:00] VITALS: BP 136/90
[2017-12-20] VITALS (7 sets, daily range): BP systolic 110–130; BP diastolic 60–76
--- NOTE | 2017-12-20 08:28 | PN- Housestaff ---
See Addendum Subjective Follow-up For: Alcohol withdrawal Subjective: Patient seen and examined at bedside, no acute events overnight, afebrile. Patient is c/o of mild nausea, which she states resolves with Zofran. Has no c/o otherwise, denies craving, irritation, agitation, abdominal pain. Review of Systems Constitutional: Denies: chills, diaphoresis, fever. Cardiovascular: Denies: chest pain. Gastrointestinal: Reports: nausea. Denies: diarrhea, distention, vomiting. Objective Last 24 Hrs of Vital Signs/I&O Vital Signs Date Time Temp Pulse Resp B/P B/P Pulse O2 O2 Flow FiO2 Mean Ox Delivery Rate 12/20 0753 73 123/70 12/20 0356 98.2 73 20 123/70 97 Room Air 12/20 0002 98.3 74 20 130/76 98 Room Air 12/19 2000 98.0 76 18 136/90 96 Room Air 12/19 1400 98.0 70 18 120/78 07 1400 98.0 70 18 120/78 96 Room Air Intake & Output 12/20 1600 12/20 0800 12/20 0000 Intake Total 250 480 Output Total Balance 250 480 Intake, IV 10 Intake, Oral 240 480 Physical Exam General Appearance: Alert, Oriented X3, Cooperative Skin: No Rashes HEENT: Atraumatic, EOMI Cardiovascular: Regular Rate, Normal S1, Normal S2 Lungs: Clear to Auscultation, Normal Air Movement Abdomen: Normal Bowel Sounds, Soft, No Tenderness Current Medications: Current Medications Sig/Shantell Start time Last Medication Dose Route Stop Time Status Admin Acetaminophen 650 MG Q6P PRN 12/15 2314 AC 12/20 PO 1116 Atenolol 50 MG DAILY 12/15 2314 AC 12/20 PO 0753 Enoxaparin Sodium 40 MG 2100 12/15 2314 AC 12/19 SC 2031 Folic Acid 1 MG DAILY 12/15 2314 AC 12/20 PO 0752 Hydroxyzine HCl 10 MG ONCE ONE 12/20 0015 DC 12/20 PO 12/20 0016 0028 Levothyroxine Sodium 0.1 MG DAILY AC 12/17 0700 AC 12/20 PO 0624 Lorazepam 0.5 MG ONE ONE 12/20 0830 DC 12/20 PO 12/20 0831 0900 Lorazepam 0.5 MG Q4-6 PRN PRN 12/19 1530 DC 12/20 PO 12/26 1522 0233 Lorazepam 0.5 MG BID PRN 12/19 1445 DC PO 12/26 1444 Lorazepam 0.5 MG Q1P PRN 12/19 1315 DC PO 12/23 1559 Multivitamins 1 TAB DAILY 12/15 2315 AC 12/20 PO 0751 Omeprazole 40 MG BID 12/19 2100 AC 12/20 PO 0752 Ondansetron HCl 4 MG ONCE ONE 12/20 1315 DC 12/20 PO 12/20 1316 1309 Ondansetron HCl 4 MG ONCE PRN 12/19 1300 DC 12/19 PO 12/19 2300 1312 Ramelteon 8 MG AT BEDTIME 12/17 2100 DC 12/19 PO 2030 Sertraline HCl 50 MG DAILY 12/15 2315 AC 12/20 PO 075 Thiamine HCl 100 MG DAILY 12/15 2315 AC 12/20 PO 0752 Assessment/Plan Assessment: Pt. is a 42yoF with PMHx significant for Alcoholic Dependence, Alcoholic hepatitis, Hypertension, anxiety and depression, who is presenting for Alcohol Withdrawal. Patient was discharge from approx 2 weeks ago for alcohol withdrawal. Problem List: 1. Alcohol Withdrawal 2. Elevated LFTs 3. Diarrhea 4. Depression 5. Hypothyroidism 6. Hypertension #Alcohol Withdrawal Patient scoring low on CIWA. Plan: - Completed CIWA protol, only scoring for anxiety. #Elevated LFTs LFTs consistent with alcohol induced liver damage. AST/ALT trending down today 94/107 down from 185/165 on admission Plan: Follow LFTs until they normalize #Diarrhea Plan: F/u C. diff #Depression Plan: Zoloft 50mg #Hypothyroidism Plan: Levothyroxine 0.1mg #Hypertension Plan: Atenolol 50mg Patient is being discharged today, she has been advised to check into [facility] in [place] on 12/21/17, According to high school social studies tutor Teresa LU will assist patient with her depression and anxiety symptoms. Will discharge patient with Zoloft 50mg, Thiamine 100mg and Levothyroxine 0.1mg. Problem List: 1. Alcohol dependence with withdrawal Pain Ratin Pain Location: n/a Pain Goal: Remain pain free Pain Plan: none Tomorrow's Labs & Rationales: none
[2017-12-20] MEDS ORDERED: VITAMIN B-1100 MG PO ×2 (11:05→11:48)
[2017-12-20] MEDS ORDERED: SERTRALINE HCL50 MG PO ×2 (11:05→11:48)
[2017-12-20] MEDS ORDERED: SYNTHROID100 MCG PO ×2 (11:05→11:48)
== END 2017-12-20 15:29 | DRG 897 ==
LOC: ERH 19:48 → 2NB 21:06 → ERHI 21:06 → ENRESERV 22:07 → ENTRNSPT 22:24 → EDTRNSPTSTS 22:25 → EDTRNSPT 22:25 → 2NB 22:36 → CMPTRNSPT 22:54 → 2NB 12-16 09:21
PROVIDERS: Emergency Medicine
DX: F10.231 Alcohol dependence with withdrawal delirium (principal); K70.10 Alcoholic hepatitis without ascites; Y90.2 Blood alcohol level of 40-59 mg/100 ml; I10 Essential (primary) hypertension; F41.9 Anxiety disorder, unspecified; E03.9 Hypothyroidism, unspecified; F32.9 Major depressive disorder, single episode, unspecified; R00.0 Tachycardia, unspecified; R74.0 Nonspecific elevation of levels of transaminase and lactic acid dehydrogenase [LDH]
CPT/HCPCS: 2NBSP; 36415; 80307; 93005; 93010; G0480; J1650; J2405; J3101; J3250; J3490